=== PATIENT | female | born 1980 | race Caucasian/White ===

== ENCOUNTER 2017-11-24 00:55 | Emergency (ER) | payer SELFPAY ==
[2017-11-24] MEDS ORDERED: LORAZEPAM 1 MG TABLET ONE (01:26)
[2017-11-24] MEDS ORDERED: METOCLOPRAMIDE 10 MG/2mL INJ ONE (01:44)
--- NOTE | 2017-11-24 02:59 | ER ---
Nurse's Notes [facility] Name: Indigo Estrada Age: 37 yrs Sex: Female : 1980 Arrival Date: 11/24/2017 Time: 00:57 Bed 19 Private MD: Diagnosis: Atypical facial pain Presentation: 11/24 01:07 Presenting complaint: Patient states: having jaw pain, headache and teeth clenching mg2 since yesterday. she had these symptoms last month and it recur yesterday. Transition of care: patient was not received from another setting of care. Onset of symptoms was November 23, 2017. Initial Sepsis Screen: Does the patient meet any 2 criteria? No. Patient's initial sepsis screen is negative. Does the patient have a suspected source of infection? No. Patient's initial sepsis screen is negative. Care prior to arrival: None. 01:07 Method Of Arrival: Wheelchair mg2 01:07 Acuity: GRISELDA 3 mg2 Historical: - Allergies: 01:11 No Known Allergies; mg2 - PMHx: 01:11 Anxiety; Schizophrenia; mg2 - PSHx: 01:11 ankle surgery; mg2 - Immunization history:: Adult Immunizations unknown. - Social history:: Smoking status: Patient uses tobacco products, 2-3 sticks a day, Patient/guardian denies using alcohol, street drugs, The patient lives with family. Screenin:13 Abuse screen: Denies threats or abuse. Denies injuries from another. Nutritional mg2 screening: No deficits noted. Tuberculosis screening: No symptoms or risk factors identified. Fall Risk None identified. Assessment: 01:14 General: Appears in no apparent distress. Behavior is anxious. Pain: Complains of pain mg2 in face head neck Pain does not radiate. Pain at worst was 10 out of 10 on a pain scale. Quality of pain is described as aching, Pain began 1 day ago. Is intermittent, Alleviated by rest, repositioning, Noted to be crying. Neuro: Level of Consciousness is awake, alert, obeys commands, Oriented to person, place. Cardiovascular: Capillary refill < 3 seconds Patient's skin is warm and dry. Respiratory: Airway is patent Respiratory effort is even, unlabored, Respiratory pattern is regular, symmetrical. GI: No signs and/or symptoms were reported involving the gastrointestinal system. : No signs and/or symptoms were reported regarding the genitourinary system. EENT: Eyes left eye pain, unable to open. Derm: Skin is intact, Skin is pink, warm \T\ dry. normal. Musculoskeletal: Capillary refill < 3 seconds, neck pain. 01:48 Reassessment: Patient appears in no apparent distress at this time. Patient and/or aa1 family updated on plan of care and expected duration. Pain level reassessed. Patient is alert, oriented x 3, equal unlabored respirations, skin warm/dry/pink. Pt medicated per MD orders. Will monitor for effectiveness of medication. 03:12 Reassessment: Patient appears in no apparent distress at this time. Patient is alert, aa1 oriented x 3, equal unlabored respirations, skin warm/dry/pink. Discussed d/c \T\ f/u instructions with pt; denies questions or concerns at this time Patient states feeling better. Patient states symptoms have improved. Vital Signs: 01:12 BP 186 / 118; Pulse 92; Resp 20; Temp 97.9; Pulse Ox 100% on R/A; Pain 10/10; mg2 01:48 BP 165 / 100; Pulse 77; Resp 20; Pulse Ox 99% on R/A; Pain 10/10; aa1 03:12 BP 153 / 99; Pulse 79; Resp 16; Pulse Ox 100% on R/A; Pain 0/10; aa1 ED Course: 00:57 Patient arrived in ED. al2 01:07 Lopez Torres, RN is Primary Nurse. mg2 01:10 Triage completed. mg2 01:13 Arm band placed on Patient placed in the treatment room, on a stretcher, on pulse mg2 oximetry. 01:17 Rosangela Figueroa MD is Attending Physician. ma2 03:12 No provider procedures requiring assistance completed. Patient did not have IV access aa1 during this emergency room visit. Administered Medications: 01:31 Drug: Ativan 2 mg Route: PO; mg2 03:12 Follow up: Response: No adverse reaction; Marked relief of symptoms aa1 01:50 Drug: Reglan 10 mg Route: IM; Site: right gluteus; aa1 03:12 Follow up: Response: No adverse reaction; Marked relief of symptoms aa1 Outcome: 02:58 Discharge ordered by MD. ma2 03:12 Discharged to home ambulatory. aa1 03:12 Condition: good 03:12 Discharge instructions given to patient, Instructed on discharge instructions, follow up and referral plans. medication usage, Demonstrated understanding of instructions, follow-up care, medications, Prescriptions given X 1. 03:14 Patient left the ED. aa1 Signatures: Jaz Cyr RN RN doug1 Laura Beltran Mohammad, MD MD ma2 Lopez Torres RN RN mg2
--- NOTE | 2017-11-24 02:59 | EDPHYS ---
Physician Documentation [facility] Name: Indigo Estrada Age: 37 yrs Sex: Female : 1980 Arrival Date: 11/24/2017 Time: 00:57 Bed 19 Private MD: ED Physician Rosangela Figueroa HPI: 11/24 02:55 This 37 yrs old Female presents to ER via Wheelchair with complaints of ma2 POSSIBLE SEIZURE. 02:55 The patient's problem is reported as facila pain x 1 day and teeth clinching . Onset: ma2 The symptoms/episode began/occurred gradually, 1 day(s) ago. Duration: The episode is continuous. The patient presents the episode(s) was witnessed, no seizure reported she had teeth clinching for 12 hrs constant and thought that this could be seizure . Seizure Hx: the patient has no previous seizure history. Current symptoms: headache. Historical: - Allergies: 01:11 No Known Allergies; mg2 - PMHx: 01:11 Anxiety; Schizophrenia; mg2 - PSHx: 01:11 ankle surgery; mg2 - Immunization history:: Adult Immunizations unknown. - Social history:: Smoking status: Patient uses tobacco products, 2-3 sticks a day, Patient/guardian denies using alcohol, street drugs, The patient lives with family. ROS: 02:55 Neuro: Positive for headache. ma2 02:55 All other systems are negative. 02:59 Constitutional: Negative for fever, chills, and weight loss. ma2 Exam: 02:55 Constitutional: This is a well developed, well nourished patient who is awake, alert, ma2 and in no acute distress. Head/Face: Normocephalic, atraumatic. Abdomen/GI: Soft, non-tender, with normal bowel sounds. No distension or tympany. No guarding or rebound. No evidence of tenderness throughout. Back: No spinal tenderness. No costovertebral tenderness. Full range of motion. Skin: Warm, dry with normal turgor. Normal color with no rashes, no lesions, and no evidence of cellulitis. MS/ Extremity: Pulses equal, no cyanosis. Neurovascular intact. Full, normal range of motion. Neuro: Awake and alert, GCS 15, oriented to person, place, time, and situation. Cranial nerves II-XII grossly intact. Motor strength 5/5 in all extremities. Sensory grossly intact. Cerebellar exam normal. Normal gait. 02:55 Psych: Behavior/mood is anxious, Affect is 02:59 CT study not indicated or reported. Reason for not performing CT: na ma2 Vital Signs: 01:12 BP 186 / 118; Pulse 92; Resp 20; Temp 97.9; Pulse Ox 100% on R/A; Pain 10/10; mg2 01:48 BP 165 / 100; Pulse 77; Resp 20; Pulse Ox 99% on R/A; Pain 10/10; aa1 03:12 BP 153 / 99; Pulse 79; Resp 16; Pulse Ox 100% on R/A; Pain 0/10; aa1 MDM: 01:18 Patient medically screened. ma2 02:55 Differential diagnosis: drug effects, bipolar, anxiety. Data reviewed: vital signs, ma2 nurses notes, EMS record, snf records. Counseling: I had a detailed discussion with the patient and/or guardian regarding: the historical points, exam findings, and any diagnostic results supporting the discharge/admit diagnosis, the presence of at least one elevated blood pressure reading (>120/80) during this emergency department visit, the need for outpatient follow up. Medication response: ativan and reglan. Response to treatment: the patient's symptoms have resolved after treatment. Administered Medications: 01:31 Drug: Ativan 2 mg Route: PO; mg2 03:12 Follow up: Response: No adverse reaction; Marked relief of symptoms aa1 01:50 Drug: Reglan 10 mg Route: IM; Site: right gluteus; aa1 03:12 Follow up: Response: No adverse reaction; Marked relief of symptoms aa1 Disposition: 11/24/17 02:58 Discharged to Home. Impression: Atypical facial pain. - Condition is Stable. - Discharge Instructions: General Headache Without Cause, Pain Without a Known Cause. - Prescriptions for Ativan 1 mg Oral Tablet - take 1 tablet by ORAL route every 8 hours As needed; 10 tablet. - Medication Reconciliation Form, Thank You Letter, Antibiotic Education, Prescription Opioid Use form. - Follow up: Private Physician; When: Tomorrow; Reason: Continuance of care. - Problem is new. - Symptoms are resolved. Signatures: Jaz Cyr RN RN aa1 Rosangela Figueroa MD MD ma2 Gardose, Lopez, RN RN mg2 Corrections: (The following items were deleted from the chart) 03:14 02:58 11/24/2017 02:58 Discharged to Home. Impression: Atypical facial pain. Condition aa1 is Stable. Forms are Medication Reconciliation Form, Thank You Letter, Antibiotic Education, Prescription Opioid Use. Follow up: Private Physician; When: Tomorrow; Reason: Continuance of care. Problem is new. Symptoms are resolved. ma2
[2017-11-24 03:18] VITALS: TEMP 97.9
[2017-11-24 03:20] VITALS: BP 153/99; O2SAT 100
== END 2017-11-24 03:14 | disposition home or self-care (01) ==
LOC: ER 00:55
DX: G50.1 Atypical facial pain (principal); F41.9 Anxiety disorder, unspecified; Z72.0 Tobacco use
CPT/HCPCS: 96372; 99283; J2765

== ENCOUNTER 2017-12-15 03:40 | Emergency (ER) | payer SELFPAY ==
[2017-12-15 04:42] LABS: Urine Blood 1+ (NEG); Urine Glucose NEGATIVE (NEG); Urine Protein NEGATIVE (NEG); Urine Specific Gravity 1.025 (1.005-1.030); Urine pH 6.5 (5.0-7.0)
--- NOTE | 2017-12-15 04:58 | ER ---
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 ak1 pt stated "there is an infection somewhere, I don't know but my gums are pulling away from my teeth." pt stated " I am having seizures, my teeth chatter all the time now" " I can see the veins in my face and stretch naranjo" no resp distress. Transition of care: patient was not received from another setting of care. Onset of symptoms is unknown. Risk Assessment: Do you want to hurt yourself or someone else? Patient reports no desire to harm self or others. Initial Sepsis Screen: Does the patient meet any 2 criteria? No. Patient's initial sepsis screen is negative. Does the patient have a suspected source of infection? No. Patient's initial sepsis screen is negative. Care prior to arrival: None. 04:08 Acuity: GRISELDA 4 ak1 04:08 Method Of Arrival: Ambulatory ak1 Triage Assessment: 04:11 General: Appears in no apparent distress. Behavior is cooperative, anxious, fussy. ak1 Pain: Complains of pain in right side of face. Neuro:. 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 - Social history:: Smoking status: Patient uses tobacco products, smokes one-half pack cigarettes per day. - Ebola Screening: : Patient negative for fever greater than or equal to 101.5 degrees Fahrenheit, and additional compatible Ebola Virus Disease symptoms Patient denies exposure to infectious person Patient denies travel to an Ebola-affected area in the 21 days before illness onset. Screenin:11 Abuse screen: Denies threats or abuse. Denies injuries from another. Nutritional ak1 screening: No deficits noted. Tuberculosis screening: No symptoms or risk factors identified. Fall Risk None identified. Assessment: 04:15 General: Appears uncomfortable, Behavior is anxious. Pain: Complains of pain in ea headache Pain currently is 8 out of 10 on a pain scale. Quality of pain is described as aching. Neuro: Level of Consciousness is awake, alert, obeys commands, Oriented to person, place, time. Cardiovascular: Heart tones S1 S2 present Patient's skin is warm and dry. Respiratory: Airway is patent Respiratory effort is even, unlabored, Respiratory pattern is regular, symmetrical, Breath sounds are clear bilaterally. GI: No signs and/or symptoms were reported involving the gastrointestinal system. : No signs and/or symptoms were reported regarding the genitourinary system. EENT: No signs and/or symptoms were reported regarding the EENT system. Derm: Skin is pink, warm \\T\\ dry. Musculoskeletal: Circulation, motion, and sensation intact. 05:44 Reassessment: Patient and/or family updated on plan of care and expected duration. Pain bb level reassessed. Patient is alert, oriented x 3, equal unlabored respirations, skin warm/dry/pink. pt verbalized understanding of and agrees to plan of care discharge instructions given pt ambulated with steady gait to exit. Vital Signs: 04:07 BP 174 / 125; Pulse 91; Resp 20; Temp 98.4(O); Pulse Ox 100% on R/A; Weight 104.33 kg ak1 (R); Height 5 ft. 2 in. (157.48 cm) (R); Pain 8/10; 05:45 BP 166 / 95; Pulse 88; Resp 18 S; Temp 97.9(O); Pulse Ox 99% on R/A; bb 04:07 Body Mass Index 42.07 (104.33 kg, 157.48 cm) ak1 ED Course: 03:41 Patient arrived in ED. ds1 03:50 Darrian Mcintyre DO is Private Physician. ds1 04:03 Dae Polanco MD is Attending Physician. wa 04:07 Arm band placed on Patient placed in an exam room, on a stretcher, on pulse oximetry, ak1 Patient notified of wait time. 04:10 Triage completed. ak1 04:11 Patient has correct armband on for positive identification. Bed in low position. Call ak1 light in reach. Side rails up X 1. Pulse ox on. NIBP on. 04:34 Mahsa Gomez, RN is Primary Nurse. ea 05:26 No provider procedures requiring assistance completed. Patient did not have IV access ea during this emergency room visit. Administered Medications: 04:43 Drug: Motrin 600 mg Route: PO; ea 05:45 Follow up: Response: No adverse reaction bb 04:43 Drug: Tylenol 1000 mg Route: PO; ea 05:45 Follow up: Response: No adverse reaction bb Outcome: 04:57 Discharge ordered by . sachi 05:46 Discharged to home ambulatory. bb 05:46 Condition: stable 05:46 Discharge instructions given to patient. 05:46 Patient left the ED. bb Signatures: Jeannine Ramírez Brenda, RN RN Ashlee Kovacs RN RN Mahsa Funez RN RN ea Appiah, William, MD MD wa
--- NOTE | 2017-12-15 04:58 | EDPHYS ---
Physician Documentation [facility] Name: Indigo Estrada Age: 37 yrs Sex: Female : 1980 Arrival Date: 12/15/2017 Time: 03:41 Bed 6 Private MD: Darrian Mcintyre H ED Physician Dae Polanco HPI: 12/15 07:14 This 37 yrs old Female presents to ER via Ambulatory with complaints of wa Numbness Of Face. 07:14 The patient's problem is reported as c/o R facial pain that comes and goes for several wa weeks. this time worse x 3 days. denies SOB, toothache or fever. Onset: The symptoms/episode began/occurred 3 day(s) ago. Duration: This was a single incident. Context: denies trauma. The symptoms are alleviated by nothing. The symptoms are aggravated by nothing. Associated signs and symptoms: The patient has no apparent associated signs or symptoms. Severity of symptoms: At their worst the symptoms were moderate in the emergency department the symptoms are worse. Patient's baseline: Neuro: alert and fully oriented, Motor: no deficits, Ambulation: walks without assistance. The patient has not experienced similar symptoms in the past. The patient has experienced similar episodes in the past, a few times. The patient has not recently seen a physician. 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 - Social history:: Smoking status: Patient uses tobacco products, smokes one-half pack cigarettes per day. - Ebola Screening: : Patient negative for fever greater than or equal to 101.5 degrees Fahrenheit, and additional compatible Ebola Virus Disease symptoms Patient denies exposure to infectious person Patient denies travel to an Ebola-affected area in the 21 days before illness onset. ROS: 07:16 Constitutional: Negative for fever, chills, and weight loss, Eyes: Negative for injury, wa pain, redness, and discharge, ENT: Negative for injury, pain, and discharge, Cardiovascular: Negative for chest pain, palpitations, and edema, Respiratory: Negative for shortness of breath, cough, wheezing, and pleuritic chest pain, Abdomen/GI: Negative for abdominal pain, nausea, vomiting, diarrhea, and constipation, Back: Negative for injury and pain, : Negative for injury, bleeding, discharge, and swelling, MS/Extremity: Negative for injury and deformity, Skin: Negative for injury, rash, and discoloration, Neuro: Negative for headache, weakness, numbness, tingling, and seizure. 07:16 Neck: Positive for pain with movement, tenderness, of the right jaw and right mandible. Exam: 07:16 Radiologist reports: not applicable wa 07:16 Constitutional: This is a well developed, well nourished patient who is awake, alert, and in no acute distress. Eyes: Pupils equal round and reactive to light, extra-ocular motions intact. Lids and lashes normal. Conjunctiva and sclera are non-icteric and not injected. Cornea within normal limits. Periorbital areas with no swelling, redness, or edema. Chest/axilla: Normal chest wall appearance and motion. Nontender with no deformity. No lesions are appreciated. Cardiovascular: Regular rate and rhythm with a normal S1 and S2. No gallops, murmurs, or rubs. Normal PMI, no JVD. No pulse deficits. Respiratory: Lungs have equal breath sounds bilaterally, clear to auscultation and percussion. No rales, rhonchi or wheezes noted. No increased work of breathing, no retractions or nasal flaring. Abdomen/GI: Soft, non-tender, with normal bowel sounds. No distension or tympany. No guarding or rebound. No evidence of tenderness throughout. Back: No spinal tenderness. No costovertebral tenderness. Full range of motion. Skin: Warm, dry with normal turgor. Normal color with no rashes, no lesions, and no evidence of cellulitis. MS/ Extremity: Pulses equal, no cyanosis. Neurovascular intact. Full, normal range of motion. Neuro: Awake and alert, GCS 15, oriented to person, place, time, and situation. Cranial nerves II-XII grossly intact. Motor strength 5/5 in all extremities. Sensory grossly intact. Cerebellar exam normal. Normal gait. Psych: Awake, alert, with orientation to person, place and time. Behavior, mood, and affect are within normal limits. 07:16 Head/face: Noted is tenderness, that is moderate, of the diffuse R face. . 07:16 ENT: Posterior pharynx: is normal, Dental exam: normal. 07:16 Neck: External neck: is normal, Trachea: is midline with no obvious abnormalities, diffuse tenderness, R face and angle of neck. Vital Signs: 04:07 BP 174 / 125; Pulse 91; Resp 20; Temp 98.4(O); Pulse Ox 100% on R/A; Weight 104.33 kg ak1 (R); Height 5 ft. 2 in. (157.48 cm) (R); Pain 8/10; 05:45 BP 166 / 95; Pulse 88; Resp 18 S; Temp 97.9(O); Pulse Ox 99% on R/A; bb 04:07 Body Mass Index 42.07 (104.33 kg, 157.48 cm) ak1 MDM: 04:03 Patient medically screened. wi 07:18 Differential diagnosis: reason for inflammation unclear at this time. will treat with wi anti-inflammatory and reassess. Data reviewed: vital signs, nurses notes. 12/15 04:21 Order name: Urine Dipstick--Ancillary (enter results); Complete Time: 04:51 rg2 12/15 04:21 Order name: Urine --Ancillary (enter results); Complete Time: 04:51 rg2 Administered Medications: 04:43 Drug: Motrin 600 mg Route: PO; ea 05:45 Follow up: Response: No adverse reaction bb 04:43 Drug: Tylenol 1000 mg Route: PO; ea 05:45 Follow up: Response: No adverse reaction bb Disposition: 12/15/17 04:57 Discharged to Home. Impression: Right facial pain . - Condition is Stable. - Prescriptions for Prednisone 20 mg Oral Tablet - take 2 tablet by ORAL route once daily for 5 days; 10 tablet. Ibuprofen 600 mg Oral Tablet - take 1 tablet by ORAL route every 6 hours As needed take with food; 20 tablet. - Medication Reconciliation Form, Thank You Letter, Antibiotic Education, Prescription Opioid Use form. - Follow up: Private Physician; When: 2 - 3 days; Reason: Recheck today's complaints. - Problem is new. - Symptoms have improved. - Notes: take medication as prescribed. see your doctor for further evaluation within 3-5 days Signatures: Dispatcher [employer] EDMS Wong, Magalie, RN RN Ashlee Kovacs RN RN ak1 Mahsa Gomez RN RN Dae Mendieta MD MD wa Corrections: (The following items were deleted from the chart) 05:46 04:57 12/15/2017 04:57 Discharged to Home. Impression: Right facial pain . Condition is bb Stable. Forms are Medication Reconciliation Form, Thank You Letter, Antibiotic Education, Prescription Opioid Use. Follow up: Private Physician; When: 2 - 3 days; Reason: Recheck today's complaints. Problem is new. Symptoms have improved. wa
[2017-12-15 06:09] VITALS: BP 166/95; TEMP 97.9; O2SAT 99
== END 2017-12-15 05:46 | disposition home or self-care (01) ==
LOC: ER 03:40
DX: R68.84 Jaw pain (principal); F17.210 Nicotine dependence, cigarettes, uncomplicated
CPT/HCPCS: 81003; 81025; 99283

== ENCOUNTER 2018-06-01 16:55 | Emergency (ER) | payer SELFPAY ==
--- NOTE | 2018-06-01 17:32 | RAD REPORT ---
EXAM DESCRIPTION: CT - Head Brain Wo Cont - 06/01/2018 5:25 pm CLINICAL HISTORY: Headache, neck pain, left-sided facial infection COMPARISON: None. TECHNIQUE: Axial 5 mm thick images of the head were obtained without IV contrast. All CT scans are performed using dose optimization technique as appropriate and may include automated exposure control or mA/KV adjustment according to patient size. FINDINGS: No intracranial hemorrhage, mass, edema or shift of mid-line structures. No acute infarcti on changes seen. No abnormal extra-axial fluid collections. Ventricles are normal. Mastoid air cells are clear. There is patchy mucosal thickening in the ethmoid air cells. No globe or orbital content abnormality. No suspicious finding in the imaged portions of the left-side face soft tissues. No acute bony findings. IMPRESSION: Negative non-contrast CT head examination for acute or significant finding.
--- NOTE | 2018-06-01 17:39 | ER ---
Nurse's Notes [facility] Name: Indigo Estrada Age: 37 yrs Sex: Female : 1980 Arrival Date: 06/01/2018 Time: 16:57 Bed 20 Private MD: Darrian Mcintyre H Diagnosis: Essential (primary) hypertension;Acute serous otitis media, left ear Presentation: 06/01 17:08 Presenting complaint: Patient states: left facial infection, "I feel like the infection sv is moving around in my face. I had baby teeth and they were supposed to take 1 tooth out and they ended up breaking half of my other teeth and then they glued them back in place.". Transition of care: patient was not received from another setting of care. Onset of symptoms is unknown. Care prior to arrival: Medication(s) given: Motrin, 600 mg. 17:08 Method Of Arrival: Ambulatory sv 17:08 Acuity: GRISELDA 3 sv 17:15 Risk Assessment: Do you want to hurt yourself or someone else? Patient reports no tw2 desire to harm self or others. Initial Sepsis Screen: Does the patient meet any 2 criteria? No. Patient's initial sepsis screen is negative. Does the patient have a suspected source of infection? No. Patient's initial sepsis screen is negative. BURNER HAND: 17:58 LMP N/A - . tw2 Historical: - Allergies: 17:11 No Known Allergies; sv - PMHx: 17:11 Anxiety; Schizophrenia; sv - PSHx: 17:11 ankle surgery; sv - Immunization history:: Flu vaccine is not up to date. - Social history:: Smoking status: Patient uses tobacco products, denies chronic smoking, but will smoke occasionally. - Ebola Screening: : No symptoms or risks identified at this time. Screenin:14 Abuse screen: Denies threats or abuse. Nutritional screening: No deficits noted. tw2 Tuberculosis screening: No symptoms or risk factors identified. Fall Risk None identified. Assessment: 17:16 General: Appears in no apparent distress. Behavior is cooperative, appropriate for age. tw2 Pain: Complains of pain in mouth. Neuro: Level of Consciousness is awake, alert, obeys commands, Oriented to person, place, time, situation. Cardiovascular: Heart tones S1 S2 Patient's skin is warm and dry. Respiratory: Airway is patent Respiratory effort is even, unlabored, Respiratory pattern is regular, symmetrical, Breath sounds are clear bilaterally. GI: No signs and/or symptoms were reported involving the gastrointestinal system. : No signs and/or symptoms were reported regarding the genitourinary system. EENT: Reports dental pain. Derm: No signs and/or symptoms reported regarding the dermatologic system. Musculoskeletal: Range of motion: intact in all extremities. 17:31 Reassessment: pt states "my teeth hurt so bad but it dont stop me from eating this tw2 kitkat". 17:58 Reassessment: Patient appears in no apparent distress at this time. No changes from tw2 previously documented assessment. Patient is alert, oriented x 3, equal unlabored respirations, skin warm/dry/pink. Vital Signs: 17:09 BP 179 / 130; Pulse 97; Resp 22; Temp 97.8; Pulse Ox 98% ; Weight 90.72 kg; Height 5 sv ft. 2 in. (157.48 cm); Pain 7/10; 17:31 BP 174 / 102; Pulse 100; Resp 19; Pulse Ox 99% on R/A; tw2 17:58 BP 170 / 99; Pulse 99; Resp 17; Pulse Ox 99% on R/A; tw2 17:09 Body Mass Index 36.58 (90.72 kg, 157.48 cm) sv ED Course: 16:57 Patient arrived in ED. sb2 16:57 Darrian Mcintyre DO is Private Physician. sb2 17:09 Triage completed. sv 17:10 Arm band placed on. sv 17:14 Renetta Hess, RN is Primary Nurse. tw2 17:15 Nat Naylor FNP-C is PHCP. snw 17:15 Jarrod Serrato MD is Attending Physician. snw 17:15 Bed in low position. Call light in reach. tw2 17:[address] vr 17:25 CT Head Brain wo Cont In Process Unspecified. EDMS 17:27 CT completed. Patient tolerated procedure well. Patient moved back from CT. vm2 17:38 Darrian Mcintyre DO is Referral Physician. snw 17:58 No provider procedures requiring assistance completed. Patient did not have IV access tw2 during this emergency room visit. Administered Medications: 17:41 Drug: cloNIDine 0.2 mg Route: PO; tw2 17:57 Follow up: Response: No adverse reaction; Blood pressure is lowered tw2 17:41 Drug: Augmentin 875 mg Route: PO; tw2 17:57 Follow up: Response: No adverse reaction tw2 Outcome: 17:39 Discharge ordered by . alyx 17:59 Discharged to home ambulatory. tw2 17:59 Condition: stable 17:59 Discharge instructions given to patient, Instructed on discharge instructions, follow up and referral plans. medication usage, Demonstrated understanding of instructions, follow-up care, medications, Prescriptions given X 2. 17:59 Patient left the ED. tw2 Signatures: Dispatcher [employer] EDCatherine Duran RN RN Nat Moore, CONDITIONER TUMBLER OPERATOR-C CONDITIONER TUMBLER OPERATOR-Margaux Champion Tara, RN RN tw2 Margaux Fountain [facility] Maria D Pedraza 2
--- NOTE | 2018-06-01 17:39 | EDPHYS ---
Physician Documentation [facility] Name: Indigo Estrada Age: 37 yrs Sex: Female : 1980 Arrival Date: 06/01/2018 Time: 16:57 Bed 20 Private MD: Darrian Mcintyre H ED Physician Jarrod Serrato HPI: 06/01 17:44 This 37 yrs old Female presents to ER via Ambulatory with complaints of Neck snw Pain, <24hrs Old. 17:44 The patient or guardian complains of pain, that is acute. The symptoms are located left snw mandibular, submandibular, and left lateral neck. Onset: The symptoms/episode began/occurred gradually, 6 week(s) ago, intermittently. Context: The problem was sustained at home. Associated signs and symptoms: The patient has no apparent associated signs or symptoms. The pain does not radiate. Modifying factors: The symptoms are alleviated by nothing. the symptoms are aggravated by pressure. Severity of symptoms: At their worst the symptoms were moderate, severe. The patient has experienced similar episodes in the past, intermittently. 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 tw2 Historical: - Allergies: 17:11 No Known Allergies; sv - PMHx: 17:11 Anxiety; Schizophrenia; sv - PSHx: 17:11 ankle surgery; sv - Immunization history:: Flu vaccine is not up to date. - Social history:: Smoking status: Patient uses tobacco products, denies chronic smoking, but will smoke occasionally. - Ebola Screening: : No symptoms or risks identified at this time. ROS: 17:43 Constitutional: Negative for fever, chills, and weight loss, Eyes: Negative for injury, snw pain, redness, and discharge. 17:43 Cardiovascular: Negative for chest pain, palpitations, and edema, Respiratory: Negative for shortness of breath, cough, wheezing, and pleuritic chest pain, Abdomen/GI: Negative for abdominal pain, nausea, vomiting, diarrhea, and constipation, Back: Negative for injury and pain, : Negative for injury, bleeding, discharge, and swelling, MS/Extremity: Negative for injury and deformity, Skin: Negative for injury, rash, and discoloration, Neuro: Negative for headache, weakness, numbness, tingling, and seizure. 17:43 ENT: Positive for dental pain, sinus congestion. 17:43 Neck: Positive for swollen nodes, tenderness, submandibular. Exam: 17:42 Constitutional: This is a well developed, well nourished patient who is awake, alert, snw and in no acute distress. Head/Face: Normocephalic, atraumatic. Eyes: Pupils equal round and reactive to light, extra-ocular motions intact. Lids and lashes normal. Conjunctiva and sclera are non-icteric and not injected. Cornea within normal limits. Periorbital areas with no swelling, redness, or edema. ENT: Nares patent. No nasal discharge, no septal abnormalities noted. Tympanic membranes are erythematous to left, normal to right and external auditory canals are clear. Oropharynx with no redness, swelling, or masses, exudates, or evidence of obstruction, uvula midline. Mucous membranes moist. Dental caries Neck: Trachea midline, no thyromegaly or masses palpated, and no cervical lymphadenopathy. Supple, full range of motion without nuchal rigidity, or vertebral point tenderness. No Meningismus. Chest/axilla: Normal chest wall appearance and motion. Nontender with no deformity. No lesions are appreciated. Cardiovascular: Regular rate and rhythm with a normal S1 and S2. No gallops, murmurs, or rubs. Normal PMI, no JVD. No pulse deficits. Respiratory: Lungs have equal breath sounds bilaterally, clear to auscultation and percussion. No rales, rhonchi or wheezes noted. No increased work of breathing, no retractions or nasal flaring. Abdomen/GI: Soft, non-tender, with normal bowel sounds. No distension or tympany. No guarding or rebound. No evidence of tenderness throughout. Back: No spinal tenderness. No costovertebral tenderness. Full range of motion. Skin: Warm, dry with normal turgor. Normal color with no rashes, no lesions, and no evidence of cellulitis. MS/ Extremity: Pulses equal, no cyanosis. Neurovascular intact. Full, normal range of motion. Neuro: Awake and alert, GCS 15, oriented to person, place, time, and situation. Cranial nerves II-XII grossly intact. Motor strength 5/5 in all extremities. Sensory grossly intact. Cerebellar exam normal. Normal gait. Psych: Awake, alert, with orientation to person, place and time. Behavior, mood, and affect are within normal limits. Vital Signs: 17:09 BP 179 / 130; Pulse 97; Resp 22; Temp 97.8; Pulse Ox 98% ; Weight 90.72 kg; Height 5 sv ft. 2 in. (157.48 cm); Pain 7/10; 17:31 BP 174 / 102; Pulse 100; Resp 19; Pulse Ox 99% on R/A; tw2 17:58 BP 170 / 99; Pulse 99; Resp 17; Pulse Ox 99% on R/A; tw2 17:09 Body Mass Index 36.58 (90.72 kg, 157.48 cm) sv MDM: 17:19 Patient medically screened. snw 17:44 Data reviewed: vital signs, nurses notes. Data interpreted: Pulse oximetry: on room air snw is 99 %. Interpretation: normal. Counseling: I had a detailed discussion with the patient and/or guardian regarding: the historical points, exam findings, and any diagnostic results supporting the discharge/admit diagnosis, the presence of at least one elevated blood pressure reading (>120/80) during this emergency department visit, radiology results, the need for outpatient follow up, to return to the emergency department if symptoms worsen or persist or if there are any questions or concerns that arise at home. Special discussion: I have referred the patient to see his PCP for further evaluation of high blood pressure. Based on the history and exam findings, there is no indication for further emergent testing or inpatient evaluation. I discussed with the patient/guardian the need to see a dentist for further evaluation of the symptoms. I discussed with the patient/guardian the need to see the primary care provider for further evaluation of the symptoms. 06/01 17:17 Order name: CT Head Brain wo Cont; Complete Time: 17:34 snw 06/01 17:17 Order name: Recheck B/P; Complete Time: 17:40 snw Administered Medications: 17:41 Drug: cloNIDine 0.2 mg Route: PO; tw2 17:57 Follow up: Response: No adverse reaction; Blood pressure is lowered tw2 17:41 Drug: Augmentin 875 mg Route: PO; tw2 17:57 Follow up: Response: No adverse reaction tw2 Disposition: 06/02 07:09 Co-signature as Attending Physician, Jarrod Serrato MD I agree with the assessment and azar plan of care. Disposition: 06/01/18 17:39 Discharged to Home. Impression: Essential (primary) hypertension, Acute serous otitis media, left ear. - Condition is Stable. - Discharge Instructions: Dental Caries, Adult, Otitis Media, Adult, Hypertension, Rehydration, Adult. - Prescriptions for Augmentin 875- 125 mg Oral Tablet - take 1 tablet by ORAL route every 12 hours for 10 days; 20 tablet. Clonidine 0.1 mg Oral Tablet - take 1 tablet by ORAL route every 12 hours; 30 tablet. - Medication Reconciliation Form, Thank You Letter, Antibiotic Education, Prescription Opioid Use form. - Follow up: Darrian Mcintyre DO; When: 2 - 3 days; Reason: Recheck today's complaints, Continuance of care, Re-evaluation by your physician. Follow up: Emergency Department; When: As needed; Reason: Worsening of condition. Signatures: Dispatcher [employer] EDCatherine Duran, RN RN Jarrod Mendez MD MD cha Therrien, Shelly, ROAD TEST EXAMINER-C ROAD TEST EXAMINER-Csnw Renetta Hess RN RN tw2 Corrections: (The following items were deleted from the chart) 06/01 17:59 17:39 06/01/2018 17:39 Discharged to Home. Impression: Essential (primary) tw2 hypertension; Acute serous otitis media, left ear. Condition is Stable. Forms are Medication Reconciliation Form, Thank You Letter, Antibiotic Education, Prescription Opioid Use. Follow up: Darrian Mcintyre; When: 2 - 3 days; Reason: Recheck today's complaints, Continuance of care, Re-evaluation by your physician. Follow up: Emergency Department; When: As needed; Reason: Worsening of condition. snw
[2018-06-01] MEDS ORDERED: AMOX/K CLAV 875 MG TAB ONE (17:47)
[2018-06-01] MEDS ORDERED: cloNIDine HCl 0.1 MG TAB ONE (17:47)
[2018-06-01 18:28] VITALS: O2SAT 99
[2018-06-01 18:29] VITALS: TEMP 97.8
[2018-06-01 18:30] VITALS: BP 170/99
== END 2018-06-01 17:59 | disposition home or self-care (01) ==
LOC: ER 16:55
DX: I10 Essential (primary) hypertension (principal); H65.02 Acute serous otitis media, left ear; F17.210 Nicotine dependence, cigarettes, uncomplicated; M54.2 Cervicalgia
CPT/HCPCS: 70450; 99284

== ENCOUNTER 2018-11-09 04:39 | Emergency (ER) | payer SELFPAY ==
[2018-11-09 05:06] LABS: Absolute Lymphocytes (CBC) 3.3 K/uL (0.7-4.9); Absolute Monocytes 0.7 K/uL (0.1-1.3); Absolute Neutrophil 4.1 K/uL (1.8-8.0); Basophils % 1.3 % (0-1.3); Eosinophils % 4.8 % (0-4.4); Hematocrit 39.8 % (36.0-45.0); Lymphocytes % 38.5 % (15.3-44.8); MPV 8.4 fL (7.6-11.3); Monocytes % 7.7 % (3.3-12.3); RBC Red Blood Cell Count 4.74 M/uL (3.86-4.86)
[2018-11-09 05:08] LABS: Protime INR 0.98
[2018-11-09 05:23] LABS: ALT/SGPT 24 U/L (12-78); AST/SGOT 18 U/L (15-37); Albumin 3.6 g/dL (3.4-5.0); Alkaline Phosphatase 66 U/L (45-117); BUN Blood Urea Nitrogen 19 mg/dL (7-18); Bicarbonate 23 mmol/L (21-32); Bilirubin Direct < 0.1 mg/dL (0-0.2); Bilirubin Total 0.3 mg/dL (0.2-1.0); Glucose Level 84 mg/dL (74-106); Magnesium 2.2 mg/dL (1.8-2.4); NT PRO-BNP 15 pg/mL (<125); Protein, Total 7.6 g/dL (6.4-8.2); Sodium Level 140 mmol/L (136-145); Troponin (Emerg Dept Use Only) < 0.02 ng/mL (0.0-0.045)
--- NOTE | 2018-11-09 06:29 | ER ---
Nurse's Notes [facility] Name: Indigo Estrada Age: 38 yrs Sex: Female : 1980 Arrival Date: 11/09/2018 Time: 04:45 Bed 4 Private MD: Diagnosis: Epilepsy and recurrent seizures;Schizophrenia Presentation: 11/09 04:35 Presenting complaint: EMS states: they were toned out for report of pt having bb difficulty speaking, feeling weak, twitching and headache. Transition of care: patient was not received from another setting of care. Onset of symptoms is unknown. Risk Assessment: Do you want to hurt yourself or someone else? Patient reports no desire to harm self or others. Initial Sepsis Screen: Does the patient meet any 2 criteria? No. Patient's initial sepsis screen is negative. Does the patient have a suspected source of infection? No. Patient's initial sepsis screen is negative. Care prior to arrival: None. 04:35 Method Of Arrival: EMS: [facility] bb 04:35 Acuity: GRISELDA 2 bb Historical: - Allergies: 04:57 No Known Allergies; bb - Home Meds: 04:57 None [Active]; bb - PMHx: 04:57 Anxiety; Schizophrenia; Seizures; bb - Immunization history:: Adult Immunizations unknown. - Social history:: Smoking status: unknown. - Ebola Screening: : No symptoms or risks identified at this time. Screenin:05 Abuse screen: Denies threats or abuse. Nutritional screening: No deficits noted. tl2 Tuberculosis screening: No symptoms or risk factors identified. Fall Risk IV access (20 points). Assessment: 05:05 General: Appears in no apparent distress. uncomfortable, Behavior is anxious. General: tl2 pt states, "I feel like my face is moving and like I have an infection or something, it's been this way for two years". Pain: Complains of pain in left jaw. Neuro: Level of Consciousness is awake, alert, obeys commands, Oriented to person, place, time, situation, Denies weakness dizziness, numbness. Cardiovascular: Denies chest pain, reports that chest "feels hot". Respiratory: Airway is patent Respiratory effort is even, unlabored, Respiratory pattern is regular, symmetrical. GI: No signs and/or symptoms were reported involving the gastrointestinal system. : No signs and/or symptoms were reported regarding the genitourinary system. Derm: Skin is pink, warm \\T\\ dry. 05:56 Reassessment: Patient appears in no apparent distress at this time. Patient and/or tl2 family updated on plan of care and expected duration. Pain level reassessed. 06:58 Reassessment: Patient appears in no apparent distress at this time. Patient and/or tl2 family updated on plan of care and expected duration. Pain level reassessed. Patient is alert, oriented x 3, equal unlabored respirations, skin warm/dry/pink. pt verbalized understanding of discharge instructions, need for follow up with psychiatric. Vital Signs: 04:57 BP 131 / 100; Pulse 108; Resp 16 S; Temp 97.8(O); Pulse Ox 100% on R/A; Weight 81.65 kg bb (R); Height 5 ft. 2 in. (157.48 cm) (R); Pain 0/10; 05:56 BP 153 / 104; Pulse 87; Resp 22; Pulse Ox 99% on R/A; tl2 06:57 BP 136 / 89; Pulse 82; Resp 18; Pulse Ox 98% on R/A; tl2 04:57 Body Mass Index 32.92 (81.65 kg, 157.48 cm) bb NIH Stroke Scale Scores: 06:16 NIHSS Score: 0 gs ED Course: 04:45 Patient arrived in ED. bb 04:50 Arm band placed on Patient placed in an exam room, on a stretcher, on rn cardiac cath, bb on pulse oximetry. 04:53 Tamir Lopez MD is Attending Physician. gs 04:56 Triage completed. bb 05:00 Inserted saline lock: 20 gauge in right antecubital area, using aseptic technique. cc3 05:01 CT Stroke Brain w/o Contrast In Process Unspecified. EDMS 05:05 Patient has correct armband on for positive identification. Bed in low position. Call tl2 light in reach. Side rails up X2. 06:26 XRAY Chest (1 view) In Process Unspecified. EDMS 06:58 No provider procedures requiring assistance completed. IV discontinued, intact, tl2 bleeding controlled, No redness/swelling at site. Pressure dressing applied. Administered Medications: No medications were administered Point of Care Testing: Blood Glucose: 05:07 Blood Glucose: 91 mg/dL; cc3 Ranges: Outcome: 06:29 Discharge ordered by . 06:58 Discharged to home ambulatory. tl2 06:58 Condition: stable 06:58 Discharge instructions given to patient, Instructed on discharge instructions, follow up and referral plans. Demonstrated understanding of instructions, follow-up care. 07:03 Patient left the ED. tl2 NIH Stroke Scale - NIH Stroke Score Date: 11/09/2018 Time: 06:16 Total Score = 0 1a. Level of Consciousness (LOC) - 0(Alert) 1b. Level of Consciousness (LOC) (Year \\T\\ Age) - 0(Both) 1c. LOC Commands (Open \\T\\ Closes Eyes/Intellectual Property Legal Assistant) - 0(Both) 2. Best Gaze (Lateral Gaze Paresis) - 0(Normal) 3. Visual Field Loss - 0(No visual loss) 4. Facial Palsy - 0(Normal) 5a. Left Arm: Motor (10-second hold) - 0(No drift) 5b. Right Arm: Motor (10-second hold) - 0(No drift) 6a. Left Leg: Motor (5-second hold - always test supine) - 0(No drift) 6b. Right Leg: Motor (5-second hold - always test supine) - 0(No drift) 7. Limb Ataxia (finger/nose \\T\\ heel/gilmore - test with eyes open) - 0(Absent) 8. Sensory Loss (pinprick arms/legs/face) - 0(Normal) 9. Best Language: Aphasia (description/naming/reading) - 0(No aphasia) 10. Dysarthria (speech clarity - read or repeat words) - 0(Normal) 11. Extinction and Inattention (visual/tactile/auditory/spatial/personal) - 0(No abnormality) Initials: Signatures: Dispatcher [employer] EDMS Magalie Wong RN RN bb Rica Mari RN RN tl2 Tamir Lopez MD MD gs Cordel, Charlene cc3 Corrections: (The following items were deleted from the chart) 06:20 04:35 Presenting complaint: EMS states: they were toned out for report of pt bb having difficulty speaking, feeling weak, twitching and headache. Pt reported she had been having "thunderclap headaches" all day. bb
--- NOTE | 2018-11-09 06:29 | EDPHYS ---
Physician Documentation [facility] Name: Indigo Estrada Age: 38 yrs Sex: Female : 1980 Arrival Date: 11/09/2018 Time: 04:45 Bed 4 Private MD: ED Physician Tamir Lopez HPI: 11/09 06:15 This 38 yrs old Female presents to ER via EMS with complaints of possible gs seizure,headache. 06:15 The patient's problem is reported as possible seizure. Onset: The symptoms/episode gs began/occurred this morning. Duration: The episodes are intermittent. The symptoms are alleviated by nothing. The symptoms are aggravated by nothing. 06:16 Associated signs and symptoms: Pertinent positives: headache, Pertinent negatives: gs chest pain, combativeness, confusion. Severity of symptoms: At their worst the symptoms were moderate in the emergency department the symptoms have resolved and did so just prior to arrival. The patient has experienced similar episodes in the past, multiple times. The patient has not recently seen a physician. 06:16 says daily. gs Historical: - Allergies: 04:57 No Known Allergies; bb - Home Meds: 04:57 None [Active]; bb - PMHx: 04:57 Anxiety; Schizophrenia; Seizures; bb - Immunization history:: Adult Immunizations unknown. - Social history:: Smoking status: unknown. - Ebola Screening: : No symptoms or risks identified at this time. ROS: 06:16 All other systems are negative. gs Exam: 06:16 Head/Face: Normocephalic, atraumatic. Eyes: Pupils equal round and reactive to light, gs extra-ocular motions intact. Lids and lashes normal. Conjunctiva and sclera are non-icteric and not injected. Cornea within normal limits. Periorbital areas with no swelling, redness, or edema. ENT: Nares patent. No nasal discharge, no septal abnormalities noted. Tympanic membranes are normal and external auditory canals are clear. Oropharynx with no redness, swelling, or masses, exudates, or evidence of obstruction, uvula midline. Mucous membranes moist. Neck: Trachea midline, no thyromegaly or masses palpated, and no cervical lymphadenopathy. Supple, full range of motion without nuchal rigidity, or vertebral point tenderness. No Meningismus. Chest/axilla: Normal chest wall appearance and motion. Nontender with no deformity. No lesions are appreciated. Cardiovascular: Regular rate and rhythm with a normal S1 and S2. No gallops, murmurs, or rubs. Normal PMI, no JVD. No pulse deficits. Respiratory: Lungs have equal breath sounds bilaterally, clear to auscultation and percussion. No rales, rhonchi or wheezes noted. No increased work of breathing, no retractions or nasal flaring. Abdomen/GI: Soft, non-tender, with normal bowel sounds. No distension or tympany. No guarding or rebound. No evidence of tenderness throughout. Back: No spinal tenderness. No costovertebral tenderness. Full range of motion. Skin: Warm, dry with normal turgor. Normal color with no rashes, no lesions, and no evidence of cellulitis. MS/ Extremity: Pulses equal, no cyanosis. Neurovascular intact. Full, normal range of motion. Neuro: Awake and alert, GCS 15, oriented to person, place, time, and situation. Cranial nerves II-XII grossly intact. Motor strength 5/5 in all extremities. Sensory grossly intact. Cerebellar exam normal. Normal gait. 06:16 Psych: Behavior/mood is pleasant, Affect is calm, Oriented to person, place, time, Patient has no thoughts/intents to harm self or others. Judgement / Insight is normal. Delusions/hallucinations slight flight ideas, very tangential, delusions about malignant tumors that come and go, teeth that were extracted and replaced without her knowing. pt is not a threat to others or herself offered her psychiatric evaluation and getting her back on medication for her schizophrenia, has poor insight yet knows she has a problem but isnt interested in help for that. Vital Signs: 04:57 BP 131 / 100; Pulse 108; Resp 16 S; Temp 97.8(O); Pulse Ox 100% on R/A; Weight 81.65 kg bb (R); Height 5 ft. 2 in. (157.48 cm) (R); Pain 0/10; 05:56 BP 153 / 104; Pulse 87; Resp 22; Pulse Ox 99% on R/A; tl2 06:57 BP 136 / 89; Pulse 82; Resp 18; Pulse Ox 98% on R/A; tl2 04:57 Body Mass Index 32.92 (81.65 kg, 157.48 cm) bb NIH Stroke Scale Scores: 06:16 NIHSS Score: 0 MDM: 04:53 Patient medically screened. 06:16 Differential diagnosis: CVA, TIA, drug effects, sz, psychiatric disorder. Data reviewed: vital signs, nurses notes, lab test result(s), EKG, radiologic studies. 06:29 ED course: no tpa no stroke. 11/09 04:54 Order name: Basic Metabolic Panel 11/09 04:54 Order name: CBC with Diff 11/09 04:54 Order name: LFT's 11/09 04:54 Order name: Magnesium 11/09 04:54 Order name: NT PRO-BNP; Complete Time: 06:14 11/09 04:54 Order name: PT-INR; Complete Time: 06:14 11/09 04:54 Order name: Troponin (emerg Dept Use Only); Complete Time: 06:14 11/09 04:54 Order name: Urine Drug Screen 11/09 04:54 Order name: Urine Microscopic Only 11/09 04:55 Order name: Basic Metabolic Panel; Complete Time: 06:14 EDHI 11/09 04:55 Order name: CBC with Automated Diff; Complete Time: 06:14 EDHI 11/09 04:55 Order name: Liver (Hepatic) Function; Complete Time: 06:14 EDHI 11/09 04:55 Order name: Magnesium; Complete Time: 06:14 EDHI 11/09 04:55 Order name: ETOH Level; Complete Time: 06:14 11/09 04:45 Order name: CT Stroke Brain w/o Contrast 11/09 04:54 Order name: XRAY Chest (1 view) 11/09 04:54 Order name: EKG; Complete Time: 04:55 11/09 04:54 Order name: Cardiac monitoring; Complete Time: 04:57 11/09 04:54 Order name: EKG - Nurse/Tech; Complete Time: 04:57 11/09 04:54 Order name: IV Saline Lock; Complete Time: 05:04 11/09 04:54 Order name: Labs collected and sent; Complete Time: 05:04 11/09 04:54 Order name: O2 Per Protocol; Complete Time: 04:57 11/09 04:54 Order name: O2 Sat Monitoring; Complete Time: 04:57 11/09 04:54 Order name: Urine Test (obtain specimen); Complete Time: 06:28 11/09 04:54 Order name: Urine Dipstick-Ancillary (obtain specimen); Complete Time: 06:28 11/09 06:31 Order name: Urine Dipstick--Ancillary (enter results) mw2 11/09 06:31 Order name: Urine --Ancillary (enter results) mw2 Administered Medications: No medications were administered Point of Care Testing: Blood Glucose: 05:07 Blood Glucose: 91 mg/dL; cc3 Ranges: Critical Glucose Levels:Adult <50 mg/dl or >400 mg/dl <40 mg/dl or >180 mg/dl Disposition: 11/09/18 06:29 Discharged to Home. Impression: Epilepsy and recurrent seizures, Schizophrenia. - Condition is Stable. - Discharge Instructions: Schizophrenia, Seizure, Adult, Psychosis, Neuropsychological Examination. - Medication Reconciliation Form, Thank You Letter, Antibiotic Education, Prescription Opioid Use form. - Follow up: Private Physician; When: 1 - 2 days; Reason: Re-evaluation by your physician. NIH Stroke Scale - NIH Stroke Score Date: 11/09/2018 Time: 06:16 Total Score = 0 1a. Level of Consciousness (LOC) - 0(Alert) 1b. Level of Consciousness (LOC) (Year \T\ Age) - 0(Both) 1c. LOC Commands (Open \T\ Closes Eyes/Radiologic Technology Instructor) - 0(Both) 2. Best Gaze (Lateral Gaze Paresis) - 0(Normal) 3. Visual Field Loss - 0(No visual loss) 4. Facial Palsy - 0(Normal) 5a. Left Arm: Motor (10-second hold) - 0(No drift) 5b. Right Arm: Motor (10-second hold) - 0(No drift) 6a. Left Leg: Motor (5-second hold - always test supine) - 0(No drift) 6b. Right Leg: Motor (5-second hold - always test supine) - 0(No drift) 7. Limb Ataxia (finger/nose \T\ heel/gilmore - test with eyes open) - 0(Absent) 8. Sensory Loss (pinprick arms/legs/face) - 0(Normal) 9. Best Language: Aphasia (description/naming/reading) - 0(No aphasia) 10. Dysarthria (speech clarity - read or repeat words) - 0(Normal) 11. Extinction and Inattention (visual/tactile/auditory/spatial/personal) - 0(No abnormality) Initials: gs Signatures: Dispatcher [employer] Magalie Richmond, RN RN bb Rica Mari RN RN tl2 Tamir Lopez MD MD gs Corrections: (The following items were deleted from the chart) 06:28 06:16 Psych: Behavior/mood is pleasant, Affect is calm, Oriented to person, gs place, time, Patient has no thoughts/intents to harm self or others. Judgement / Insight is normal. Delusions/hallucinations slight flight ideas, gs 07:03 06:29 11/09/2018 06:29 Discharged to Home. Impression: Epilepsy and recurrent tl2 seizures; Schizophrenia. Condition is Stable. Forms are Medication Reconciliation Form, Thank You Letter, Antibiotic Education, Prescription Opioid Use. Follow up: Private Physician; When: 1 - 2 days; Reason: Re-evaluation by your physician. gs
[2018-11-09 06:40] LABS: Urine Blood TRACE (NEG); Urine Glucose NEGATIVE (NEG); Urine Protein NEGATIVE (NEG); Urine Specific Gravity 1.025 (1.005-1.030)
[2018-11-09 06:43] LABS: Urine Bacteria >50 /HPF (<20); Urine Culture Reflex Order NOT NEEDED; Urine Mucus MOD /HPF (NONE SEEN); Urine RBC NONE SEEN /HPF (NONE SEEN)
[2018-11-09 06:45] LABS: Barbiturates NEGATIVE (NEGATIVE); Benzodiazepines NEGATIVE (NEGATIVE); Cocaine NEGATIVE (NEGATIVE); METHAMPHETAM POSITIVE (NEGATIVE); Methadone NEGATIVE (NEGATIVE); Opiates NEGATIVE (NEGATIVE); Phencyclidine NEGATIVE (NEGATIVE); THC Cannibis NEGATIVE (NEGATIVE)
[2018-11-09 07:11] VITALS: TEMP 97.8
[2018-11-09 07:14] VITALS: BP 136/89; O2SAT 98
--- NOTE | 2018-11-09 07:43 | EKG ---
Test Date: 2018-11-09 Test Time: 04:49:42 Compound Filler: MARIELLA MEASUREMENT RESULTS: Intervals: Rate: 95 VT: 154 QRSD: 94 QT: 352 QTc: 442 [place]: P: 47 VT: 154 QRS: 36 T: 55 INTERPRETIVE STATEMENTS: Normal sinus rhythm Normal ECG Compared to ECG 03/29/2016 21:00:33 No significant changes Electronically Signed On 11-09-18 07:42:44 CDT by Rg Barrett
--- NOTE | 2018-11-09 09:17 | RAD REPORT ---
EXAM DESCRIPTION: RAD - Chest Single View - 11/09/2018 6:25 am CLINICAL HISTORY: Weakness, difficulty breathing COMPARISON: October 2010 TECHNIQUE: AP portable chest image was obtained 0504 hours . FINDINGS: Lungs are clear. Heart and vasculature are normal. No measurable pleural effusion and no p neumothorax. No acute bony abnormality seen. No acute aortic findings suspected. IMPRESSION: No acute cardiopulmonary process. No significant interval change.
--- NOTE | 2018-11-09 09:31 | RAD REPORT ---
EXAM DESCRIPTION: CT - Ct Stroke Brain Wo Cont - 11/09/2018 6:57 am CLINICAL HISTORY: Slurred speech. COMPARISON: None. TECHNIQUE: Axial [address] imaging of the brain. Reformatted coronal and sagittal images ob tained. This examination was performed according to our departmental dose optimization program, which include s automated exposure control, adjustment of the mA and/or kV according to patient size and/or use of iterative reconstruction technique. FINDINGS: Normal ventricle size. The extra-axial fluid spaces appear normal. Ruiz-white matter diffe rentiation is within normal limits. No edema or hemorrhage. No large acute territorial infarction. No mass or midline shift. No intracranial bleed. Normal cerebellum and vermis. Fourth ventricle is midline. Normal sella contents. The intraorbital soft tissues appear normal. There is significant mucosal thickening within the right maxillary antrum. Mild mucosal thickening in the ethmoid air cells and left maxillary antrum. Mastoi d air cells are clear. Intact skull base and calvarium. Unremarkable scalp soft tissues. IMPRESSION: 1. No intracranial acute finding. 2. Mucosal sinus disease. Electronically signed by: Ning Rangel DO 11/09/2018 5:22 AM CDT Due to temporary technical issues with the PACS/Fluency reporting system, reports are being signed by the in house radiologist as a courtesy to ensure prompt reporting. The interpreting radiologist is f ully responsible for the content of the report.
== END 2018-11-09 07:03 | disposition home or self-care (01) ==
LOC: ER 04:39
DX: G40.909 Epilepsy, unspecified, not intractable, without status epilepticus (principal); F20.9 Schizophrenia, unspecified; F41.9 Anxiety disorder, unspecified
CPT/HCPCS: 36415; 70450; 71045; 80048; 80076; 80307; 80320; 81003; 81015; 81025; 82962; 83735; 83880; 84484; 85025; 85610; 93005; 99284

== ENCOUNTER 2018-12-14 20:29 | Emergency (ER) | payer SELFPAY ==
--- NOTE | 2018-12-14 21:12 | EDPHYS ---
Physician Documentation [facility] Name: Indigo Estrada Age: 38 yrs Sex: Female : 1980 Arrival Date: 12/14/2018 Time: 20:34 Bed 6 Private MD: Gilberto Patton R ED Physician Tamir Lopez HPI: 12/14 22:35 The patient complains of pain to the left cheek and left jaw. The patient describes the gs headache as throbbing. Onset: The symptoms/episode began/occurred 6 month(s) ago. Associated signs and symptoms: Pertinent negatives: altered mental status, dizziness, fever, malaise, neck stiffness, paresthesias, Photophobia rash, vision changes. Severity of symptoms: At its worst the pain was moderate, in the emergency department the pain is unchanged. Headache History: The patient has had previous headaches and this one is similar to previous episodes. The symptoms are alleviated by nothing. the symptoms are aggravated by nothing. The patient has experienced similar episodes in the past, chronically. 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 - Social history:: Smoking status: Patient uses tobacco products, denies chronic smoking, but will smoke occasionally. - Ebola Screening: : No symptoms or risks identified at this time. ROS: 22:35 All other systems are negative. gs Exam: 22:35 Head/Face: Normocephalic, atraumatic. Eyes: Pupils equal round and reactive to light, gs extra-ocular motions intact. Lids and lashes normal. Conjunctiva and sclera are non-icteric and not injected. Cornea within normal limits. Periorbital areas with no swelling, redness, or edema. ENT: Nares patent. No nasal discharge, no septal abnormalities noted. Tympanic membranes are normal and external auditory canals are clear. Oropharynx with no redness, swelling, or masses, exudates, or evidence of obstruction, uvula midline. Mucous membranes moist. Neck: Trachea midline, no thyromegaly or masses palpated, and no cervical lymphadenopathy. Supple, full range of motion without nuchal rigidity, or vertebral point tenderness. No Meningismus. Chest/axilla: Normal chest wall appearance and motion. Nontender with no deformity. No lesions are appreciated. Cardiovascular: Regular rate and rhythm with a normal S1 and S2. No gallops, murmurs, or rubs. Normal PMI, no JVD. No pulse deficits. Respiratory: Lungs have equal breath sounds bilaterally, clear to auscultation and percussion. No rales, rhonchi or wheezes noted. No increased work of breathing, no retractions or nasal flaring. Abdomen/GI: Soft, non-tender, with normal bowel sounds. No distension or tympany. No guarding or rebound. No evidence of tenderness throughout. Back: No spinal tenderness. No costovertebral tenderness. Full range of motion. Skin: Warm, dry with normal turgor. Normal color with no rashes, no lesions, and no evidence of cellulitis. MS/ Extremity: Pulses equal, no cyanosis. Neurovascular intact. Full, normal range of motion. Neuro: Awake and alert, GCS 15, oriented to person, place, time, and situation. Cranial nerves II-XII grossly intact. Motor strength 5/5 in all extremities. Sensory grossly intact. Cerebellar exam normal. Normal gait. 22:35 Constitutional: The patient appears alert, awake. Vital Signs: 20:44 BP 178 / 102; Pulse 93; Resp 18; Temp 97.8; Pulse Ox 98% on R/A; Weight 81.65 kg; aa1 Height 5 ft. 2 in. (157.48 cm); Pain 8/10; 21:20 BP 152 / 82; Pulse 90; Resp 16; Pulse Ox 99% on R/A; rr5 20:44 Body Mass Index 32.92 (81.65 kg, 157.48 cm) aa1 MDM: 21:08 Patient medically screened. gs 22:35 Differential diagnosis: neuralgia,om, neck pain. Data reviewed: vital signs, nurses gs notes, old medical records. Counseling: I had a detailed discussion with the patient and/or guardian regarding: the historical points, exam findings, and any diagnostic results supporting the discharge/admit diagnosis, the need for outpatient follow up, a neurologist. Administered Medications: No medications were administered Disposition: 12/14/18 21:12 Discharged to Home. Impression: Atypical facial pain. - Condition is Stable. - Discharge Instructions: Managing Your Hypertension. - Prescriptions for Neurontin 300 mg Oral Capsule - take 1 capsule by ORAL route once daily; 15 capsule. - Medication Reconciliation Form, Thank You Letter, Antibiotic Education, Prescription Opioid Use form. - Follow up: Private Physician; When: 1 - 2 days; Reason: Re-evaluation by your physician. Follow up: Gianni Purcell MD; When: 1 - 2 days; Reason: Re-evaluation by your physician. Signatures: Jaz Newman RN RN aa1 Tamir Lopez MD MD gs Jesus Payne RN RN rr5 Corrections: (The following items were deleted from the chart) 21:18 21:12 12/14/2018 21:12 Discharged to Home. Impression: Atypical facial pain. Condition gs is Stable. Forms are Medication Reconciliation Form, Thank You Letter, Antibiotic Education, Prescription Opioid Use. Follow up: Private Physician; When: 1 - 2 days; Reason: Re-evaluation by your physician. gs 21:25 21:18 12/14/2018 21:12 Discharged to Home. Impression: Atypical facial pain. Condition rr5 is Stable. Discharge Instructions: Managing Your Hypertension. Prescriptions for Neurontin 300 mg Oral Capsule - take 1 capsule by ORAL route once daily; 15 capsule. and Forms are Medication Reconciliation Form, Thank You Letter, Antibiotic Education, Prescription Opioid Use. Follow up: Private Physician; When: 1 - 2 days; Reason: Re-evaluation by your physician. Follow up: Gianni Purcell; When: 1 - 2 days; Reason: Re-evaluation by your physician. gs
--- NOTE | 2018-12-14 21:12 | ER ---
Nurse's Notes [facility] Name: Indigo Estrada Age: 38 yrs Sex: Female : 1980 Arrival Date: 12/14/2018 Time: 20:34 Bed 6 Private MD: Gilberto Patton R Diagnosis: Atypical facial pain Presentation: 12/14 20:42 Presenting complaint: Patient states: headache, neck pain, ear pain and pain in throat aa1 off and on for several months but is worse today. States, "It feels like my neck is broken and I can't open my eyes.". Transition of care: patient was not received from another setting of care. Onset of symptoms was August 2018. Risk Assessment: Do you want to hurt yourself or someone else? Patient reports no desire to harm self or others. Initial Sepsis Screen: Does the patient meet any 2 criteria? No. Patient's initial sepsis screen is negative. Does the patient have a suspected source of infection? No. Patient's initial sepsis screen is negative. Care prior to arrival: None. 20:42 Method Of Arrival: Ambulatory aa1 20:42 Acuity: GRISELDA 3 aa1 Triage Assessment: 20:44 General: Appears in no apparent distress. comfortable, Behavior is calm, cooperative, aa1 appropriate for age. 20:45 Headache History: The patient has had previous headaches and this one is similar to rr5 previous episodes. Pain: Also complains of. 20:45 Pain: Pain currently is 8 out of 10 on a pain scale. Pain began months ago. 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 - Social history:: Smoking status: Patient uses tobacco products, denies chronic smoking, but will smoke occasionally. - Ebola Screening: : No symptoms or risks identified at this time. Screenin:50 Abuse screen: Denies threats or abuse. Denies injuries from another. Nutritional rr5 screening: No deficits noted. Tuberculosis screening: No symptoms or risk factors identified. Fall Risk None identified. Total Sanchez Fall Scale indicates No Risk (0-24 pts). Assessment: 20:45 General: Appears in no apparent distress. uncomfortable, Behavior is calm, cooperative, rr5 appropriate for age. 20:45 Pain: Complains of pain in left jaw and cheek Pain does not radiate. Pain currently is rr5 8 out of 10 on a pain scale. Quality of pain is described as aching, Pain began gradually, Is intermittent. Neuro: Level of Consciousness is awake, alert, obeys commands, Oriented to person, place, time, situation, Appropriate for age Emergency Department Physician are equal bilaterally Moves all extremities. Full function Speech is normal, Facial symmetry appears normal, Reports headache neck. Cardiovascular: Capillary refill < 3 seconds Patient's skin is warm and dry. Respiratory: Airway is patent Respiratory effort is even, unlabored, Respiratory pattern is regular, symmetrical. GI: No signs and/or symptoms were reported involving the gastrointestinal system. : No signs and/or symptoms were reported regarding the genitourinary system. EENT: Reports pain in throat. Derm: No signs and/or symptoms reported regarding the dermatologic system. Musculoskeletal: Circulation, motion, and sensation intact. Capillary refill < 3 seconds. 21:23 Reassessment: Patient appears in no apparent distress at this time. Patient is alert, rr5 oriented x 3, equal unlabored respirations, skin warm/dry/pink. ED provider spoke to patient. discharge instruction given and explained without complaints made. Vital Signs: 20:44 BP 178 / 102; Pulse 93; Resp 18; Temp 97.8; Pulse Ox 98% on R/A; Weight 81.65 kg; aa1 Height 5 ft. 2 in. (157.48 cm); Pain 8/10; 21:20 BP 152 / 82; Pulse 90; Resp 16; Pulse Ox 99% on R/A; rr5 20:44 Body Mass Index 32.92 (81.65 kg, 157.48 cm) aa1 ED Course: 20:34 Patient arrived in ED. es 20:35 Gilberto Patton MD is Private Physician. es 20:44 Triage completed. aa1 20:44 Arm band placed on right wrist. Patient placed in an exam room, on a stretcher. aa1 20:45 Patient has correct armband on for positive identification. Call light in reach. rr5 20:52 Lopez, Tamir, MD is Attending Physician. 21:15 Gianni Purcell MD is Referral Physician. 21:16 Jesus Payne, RN is Primary Nurse. rr5 21:20 No provider procedures requiring assistance completed. Patient did not have IV access rr5 during this emergency room visit. Administered Medications: No medications were administered Outcome: 21:12 Discharge ordered by MD. gs 21:20 Discharged to home ambulatory. rr5 21:20 Condition: stable 21:20 Discharge instructions given to patient, Instructed on discharge instructions, follow up and referral plans. medication usage, Demonstrated understanding of instructions, follow-up care, medications, Prescriptions given X 1. 21:25 Patient left the ED. rr5 Signatures: Jaz Newman, RN RN aa1 Ashia Sorto Gregory, MD MD Jesus Payne, RN RN rr5
[2018-12-14 21:40] VITALS: BP 178/102; TEMP 97.8; O2SAT 98
== END 2018-12-14 21:25 | disposition home or self-care (01) ==
LOC: ER 20:29
DX: G50.1 Atypical facial pain (principal); Z72.0 Tobacco use
CPT/HCPCS: 99282

== ENCOUNTER 2020-04-24 11:23 | Emergency (ER) | payer SELFPAY ==
--- NOTE | 2020-04-24 11:54 | EDPHYS ---
Physician Documentation [facility] Name: Indigo Estrada Age: 39 yrs Sex: Female : 1980 Arrival Date: 04/24/2020 Time: 11:26 Bed 8 Private MD: ED Physician Jose De Anda HPI: 04/24 11:46 This 39 yrs old Female presents to ER via Ambulatory with complaints of Eye rn Swelling, facial swelling and pain. 11:46 The patient is experiencing pain, redness, The patient sustained None. to the right eye.rn 11:47 Onset: The symptoms/episode began/occurred 2 day(s) ago. Aggravated by nothing. rn Alleviated by nothing. Severity of symptoms: At their worst the symptoms were moderate in the emergency department the symptoms are unchanged. The patient has not experienced similar symptoms in the past. Reports having left jaw pain and facial pain for almost 1 week, now today noticed redness to left jaw line and right periorbital region. No fever. No trauma. No new medication or exposure. . Historical: - Allergies: 11:35 No Known Allergies; ll1 - PMHx: 11:35 Anxiety; Schizophrenia; Seizures; ll1 - PSHx: 11:35 None; ll1 - Immunization history:: Flu vaccine is not up to date. - Social history:: Smoking status: Patient reports the use of cigarette tobacco products, smokes one-half pack cigarettes per day. - Family history:: not pertinent. - Hospitalizations: : No recent hospitalization is reported. ROS: 11:47 Constitutional: Negative for fever, chills, and weight loss, Eyes: + right periorbital rn redness and rash, no eye pain or drainage. ENT: Negative for injury, and discharge, Neck: Negative for injury, pain, and swelling, Cardiovascular: Negative for chest pain, palpitations, and edema, Respiratory: Negative for shortness of breath, cough, wheezing, and pleuritic chest pain, Abdomen/GI: Negative for abdominal pain, nausea, vomiting, diarrhea, and constipation, MS/Extremity: Negative for injury and deformity, Skin: Negative for injury Neuro: Negative for headache, weakness, numbness, tingling, and seizure. Exam: 11:47 Constitutional: This is a well developed, well nourished patient who is awake, alert, rn and in no acute distress. Head/Face: Normocephalic, atraumatic. Eyes: Pupils equal round and reactive to light, extra-ocular motions intact. Lids and lashes normal. Conjunctiva and sclera are non-icteric and not injected. Cornea within normal limits. Right periorbital region with blanching erythema, no pustules or flutuance. ENT: Oropharynx with no redness, swelling, or masses, exudates, or evidence of obstruction, uvula midline. Mucous membranes moist. Poor dentition without obvious abscess. Neck: Trachea midline, + bilateral cervical lymphadenopathy, neck supple Cardiovascular: Tachycardic, regular. Respiratory: No increased work of breathing, no retractions or nasal flaring. Skin: Warm, dry MS/ Extremity: Pulses equal, no cyanosis. Neuro: Awake and alert, GCS 15, oriented to person, place, time, and situation. Cranial nerves II-XII grossly intact. Motor strength 5/5 in all extremities. Sensory grossly intact. Cerebellar exam normal. Normal gait. Vital Signs: 11:34 BP 158 / 105; Pulse 118; Resp 18; Temp 98.1; Pulse Ox 100% ; Weight 113.4 kg; Height 5 ll1 ft. 2 in. (157.48 cm); Pain 9/10; 11:45 BP 147 / 98; Pulse 107; Resp 18; Pulse Ox 99% on R/A; em 11:34 Body Mass Index 45.73 (113.40 kg, 157.48 cm) ll1 MDM: 11:39 Patient medically screened. rn 11:52 Differential diagnosis: periorbital cellulitis, facial cellulitis, lymphadenitis. Data rn reviewed: vital signs, nurses notes, and as a result, I will discharge patient. Counseling: I had a detailed discussion with the patient and/or guardian regarding: the historical points, exam findings, and any diagnostic results supporting the discharge/admit diagnosis, the need for outpatient follow up, to return to the emergency department if symptoms worsen or persist or if there are any questions or concerns that arise at home. Special discussion: I discussed with the patient/guardian in detail that at this point there is no indication for admission to the hospital. It is understood, however, that if the symptoms persist or worsen the patient needs to return immediately for re-evaluation. Administered Medications: 11:56 Drug: Bactrim (160 mg-800 mg (DS) 1 tablet Route: PO; em 12:10 Follow up: Response: No adverse reaction em 11:56 Drug: KeFLEX 500 mg Route: PO; em 12:10 Follow up: Response: No adverse reaction em 11:56 Drug: predniSONE 60 mg Route: PO; em 12:10 Follow up: Response: No adverse reaction em Disposition: 04/24/20 11:53 Discharged to Home. Impression: Cellulitis of face. - Condition is Stable. - Discharge Instructions: Cellulitis, Adult. - Prescriptions for Keflex 500 mg Oral Capsule - take 1 capsule by ORAL route every 12 hours for 10 days; 20 capsule. Medrol (Manuel) 4 mg Oral Tablets, Dose Pack - take 1 tablet by ORAL route as directed - follow package instructions; 1 packet. Bactrim DS 800- 160 mg Oral Tablet - take 1 tablet by ORAL route every 12 hours for 10 days; 20 tablet. - Medication Reconciliation Form, Thank You Letter, Antibiotic Education, Prescription Opioid Use form. - Follow up: Private Physician; When: As needed; Reason: Recheck today's complaints, Re-evaluation by your physician. - Problem is new. - Symptoms are unchanged. Signatures: Russ Del Real, RN RN Jose Hopkins MD MD rn Lewis, Lynsay, RN RN ll1 Corrections: (The following items were deleted from the chart) 12:11 11:53 04/24/2020 11:53 Discharged to Home. Impression: Cellulitis of face. Condition is em Stable. Forms are Medication Reconciliation Form, Thank You Letter, Antibiotic Education, Prescription Opioid Use. Follow up: Private Physician; When: As needed; Reason: Recheck today's complaints, Re-evaluation by your physician. Problem is new. Symptoms are unchanged. rn
--- NOTE | 2020-04-24 11:54 | ER ---
Nurse's Notes [facility] Name: Indigo Estrada Age: 39 yrs Sex: Female : 1980 Arrival Date: 04/24/2020 Time: 11:26 Bed 8 Private MD: Diagnosis: Cellulitis of face Presentation: 04/24 11:34 Chief complaint: Patient states: Left jaw pain for 6 days. Eye swelling, redness, for 2 ll1 days. Coronavirus screen: Client denies travel out of the [place] in the last 14 days. At this time, the client does not indicate any symptoms associated with coronavirus-19. Ebola Screen: Patient denies travel to an Ebola-affected area in the 21 days before illness onset. Initial Sepsis Screen: Does the patient meet any 2 criteria? HR > 90 bpm. No. Patient's initial sepsis screen is negative. Risk Assessment: Do you want to hurt yourself or someone else? Patient reports no desire to harm self or others. Onset of symptoms was April 19, 2020. 11:34 Method Of Arrival: Ambulatory ll1 11:34 Acuity: GRISELDA 2 ll1 Historical: - Allergies: 11:35 No Known Allergies; ll1 - PMHx: 11:35 Anxiety; Schizophrenia; Seizures; ll1 - PSHx: 11:35 None; ll1 - Immunization history:: Flu vaccine is not up to date. - Social history:: Smoking status: Patient reports the use of cigarette tobacco products, smokes one-half pack cigarettes per day. - Family history:: not pertinent. - Hospitalizations: : No recent hospitalization is reported. Screenin:01 Abuse screen: Denies threats or abuse. Nutritional screening: No deficits noted. em Tuberculosis screening: No symptoms or risk factors identified. Fall Risk None identified. Assessment: 11:45 General: Appears in no apparent distress. comfortable, uncomfortable, Behavior is calm, em cooperative, appropriate for age, Denies fever. Pain: Complains of pain in left submandibular area Pain currently is 0 out of 10 on a pain scale. Neuro: Level of Consciousness is awake, alert, obeys commands, Oriented to person, place, time, situation, Appropriate for age. Cardiovascular: Capillary refill < 3 seconds Patient's skin is warm and dry. Respiratory: Airway is patent Respiratory effort is even, unlabored, Respiratory pattern is regular, symmetrical. GI: Abdomen is round non-distended. Derm: Skin is intact, is healthy with good turgor, Skin is pink, warm \T\ dry. Musculoskeletal: Capillary refill < 3 seconds, Range of motion: intact in all extremities, Swelling present in right eye and left submandibular area. Vital Signs: 11:34 BP 158 / 105; Pulse 118; Resp 18; Temp 98.1; Pulse Ox 100% ; Weight 113.4 kg; Height 5 ll1 ft. 2 in. (157.48 cm); Pain 9/10; 11:45 BP 147 / 98; Pulse 107; Resp 18; Pulse Ox 99% on R/A; em 11:34 Body Mass Index 45.73 (113.40 kg, 157.48 cm) ll1 ED Course: 11:26 Patient arrived in ED. mr 11:35 Triage completed. ll1 11:35 Arm band placed on. ll1 11:39 Jose De Anda MD is Attending Physician. rn 11:42 Russ Del Real RN is Primary Nurse. em 12:01 Patient has correct armband on for positive identification. em 12:07 No provider procedures requiring assistance completed. Patient did not have IV access em during this emergency room visit. Administered Medications: 11:56 Drug: Bactrim (160 mg-800 mg (DS) 1 tablet Route: PO; em 12:10 Follow up: Response: No adverse reaction em 11:56 Drug: KeFLEX 500 mg Route: PO; em 12:10 Follow up: Response: No adverse reaction em 11:56 Drug: predniSONE 60 mg Route: PO; em 12:10 Follow up: Response: No adverse reaction em Outcome: 11:53 Discharge ordered by . rn 12:07 Discharged to home ambulatory. em 12:07 Condition: good 12:07 Discharge instructions given to patient, Instructed on discharge instructions, follow up and referral plans. medication usage, Demonstrated understanding of instructions, follow-up care, medications, Prescriptions given X 3. 12:11 Patient left the ED. em Signatures: Talisha Huffman Edgar, RN RN em Jose De Anda MD MD rn Lewis, Lynsay, RN RN [facility]
[2020-04-24] MEDS ORDERED: predniSONE 20 MG TAB ONE (12:04)
[2020-04-24] MEDS ORDERED: SMZ./TMP. 800/160 MG TABLET ONE (12:04)
[2020-04-24] MEDS ORDERED: CEPHALEXIN 250 MG CAP ONE (12:04)
[2020-04-24 12:31] VITALS: TEMP 98.1
[2020-04-24 12:32] VITALS: BP 147/98; O2SAT 99
--- OUTSIDE RECORDS SUMMARY | 2020-04-27 06:24 | XMS REPORT | Continuity of Care Document ---
:1980 Author Organization [facility] t Address [address] [place] [address] Dr. Ricardo [address] [place] [id number] Care Team Providers Name Role Phone Unavailable Unavailable Unavailable Problems This patient has no known problems. Allergies, Adverse Reactions, Alerts This patient has no known allergies or adverse reactions. Medications This patient has no known medications. Procedures This patient has no known procedures. Results This patient has no known results.
== END 2020-04-24 12:11 | disposition home or self-care (01) ==
LOC: ER 11:23
DX: L03.211 Cellulitis of face (principal); F17.210 Nicotine dependence, cigarettes, uncomplicated
CPT/HCPCS: 99283; J7512

== ENCOUNTER 2021-05-13 10:13 | Emergency (ER) | payer SELFPAY ==
--- NOTE | 2021-05-13 10:53 | ER ---
Nurse's Notes [facility] Name: Indigo Estrada Age: 40 yrs Sex: Female : 1980 Arrival Date: 05/13/2021 Time: 10:14 Bed 13 Private MD: Darrian Mcintyre H Diagnosis: Dental caries, unspecified-Dental pain Presentation: 05/13 10:21 Chief complaint: Patient states: Eye pains, FARIAS, jaw pains, lymph node swelling "all the ll1 time" for months. States she comes here all the time for this, and they can never figure out what's going on. + ear pain today. Coronavirus screen: Vaccine status: Patient reports being unvaccinated. Client denies travel out of the [place] in the last 14 days. At this time, the client does not indicate any symptoms associated with coronavirus-19. Ebola Screen: Patient denies travel to an Ebola-affected area in the 21 days before illness onset. Mechanism of Injury: No Mechanism of Injury. The patient denies any loss of vision. Initial Sepsis Screen: Does the patient meet any 2 criteria? HR > 90 bpm. No. Patient's initial sepsis screen is negative. Does the patient have a suspected source of infection? No. Patient's initial sepsis screen is negative. Risk Assessment: Do you want to hurt yourself or someone else? Patient reports no desire to harm self or others. Onset of symptoms. Onset of symptoms is unknown. 10:21 Method Of Arrival: Ambulatory ll1 10:21 Acuity: GRISELDA 3 ll1 Historical: - Allergies: 10:21 No Known Drug Allergies; ll1 - PMHx: 10:21 Anxiety; Schizophrenia; Seizures; ll1 - Immunization history:: Client reports having NOT received the Covid vaccine. - Social history:: Smoking status: Patient reports the use of cigarette tobacco products, denies chronic smoking, but will smoke occasionally. Screenin:35 Abuse screen: Denies threats or abuse. Denies injuries from another. Nutritional jw6 screening: No deficits noted. Tuberculosis screening: No symptoms or risk factors identified. Fall Risk None identified. Assessment: 10:35 General: Appears distressed, uncomfortable, Behavior is cooperative, restless. Pain: jw6 Complains of pain in right eye and right ear Pain does not radiate. Pain currently is 8 out of 10 on a pain scale. Neuro: No deficits noted. Cardiovascular: No deficits noted. Respiratory: No deficits noted. GI: No deficits noted. : No deficits noted. EENT: Eyes are tearing on outer aspect of conjuctiva of right eye Sclera/Cornea are clear in outer aspect of conjuctiva of right eye, iris of right eye and inner aspect of conjuctiva of right eye Reports pain in right eye and right ear Pain is 8 out of 10 on a pain scale. Derm: No deficits noted. Musculoskeletal: No deficits noted. Vital Signs: 10:21 BP 165 / 100; Pulse 113; Resp 17; Temp 98.3; Pulse Ox 98% on R/A; Height 5 ft. 2 in. ll1 (157.48 cm); Pain 8/10; Vitals: 10:35 Cardiac Rhythm Assessment Regular. jw6 ED Course: 10:14 Patient arrived in ED. ds1 10:15 Darrian Mcintyre DO is Private Physician. ds1 10:18 See Hargrove NP is PHCP. pm1 10:18 Jarrod Serrato MD is Attending Physician. pm1 10:21 Arm band placed on Patient placed in an exam room, on a stretcher. ll1 10:24 Triage completed. ll1 10:34 Rosita Rivas is Primary Nurse. jw6 10:35 Patient has correct armband on for positive identification. Bed in low position. Call jw6 light in reach. Side rails up X 1. Administered Medications: 10:45 Drug: HYDROcodone-acetaminophen 5 mg-325 mg 2 tabs Route: PO; jw6 10:45 Follow up: Response: No adverse reaction jw6 10:45 Drug: Augmentin (Amoxicillin-Clavulanate) 875 mg Route: PO; jw6 10:45 Follow up: Response: No adverse reaction jw6 Outcome: 10:52 Discharge ordered by . pm1 11:07 Patient left the ED. jw6 Signatures: Jeannine Ramírez ds1 See Hargrove NP [employer] pm1 Ricky Peace RN RN ll1 Rosita Rivas jw6
--- NOTE | 2021-05-13 10:53 | EDPHYS ---
Physician Documentation [facility] Name: Indigo Estrada Age: 40 yrs Sex: Female : 1980 Arrival Date: 05/13/2021 Time: 10:14 Bed 13 Private MD: Darrian Mcintyre H ED Physician Jarrod Serrato HPI: 05/13 10:43 This 40 yrs old Female presents to ER via Ambulatory with complaints of Right pm1 Facial Pain. 10:43 The patient presents with pain, to right sided facial pain. The complaints affect the pm1 right side of face. Onset: The symptoms/episode began/occurred Ongoing for multiple months. 10:43 Modifying factors: The symptoms are alleviated by nothing. Associated signs and pm1 symptoms: Pertinent negatives: fever, sore throat. Severity of symptoms: in the emergency department the symptoms are worse. The patient has experienced similar episodes in the past, chronically, on going for at least 1 year. The patient has not recently seen a physician. Had tooth removal about 1.5 months ago which was believed to be the problematic tooth. Multiple teeth present that could also be a cause but were not removed at that time. Historical: - Allergies: 10:21 No Known Drug Allergies; ll1 - PMHx: 10:21 Anxiety; Schizophrenia; Seizures; ll1 - Immunization history:: Client reports having NOT received the Covid vaccine. - Social history:: Smoking status: Patient reports the use of cigarette tobacco products, denies chronic smoking, but will smoke occasionally. ROS: 10:43 Constitutional: Negative for fever, chills, and weight loss. pm1 10:43 Neck: Negative for injury, pain, and swelling, Cardiovascular: Negative for chest pain, palpitations, and edema, Respiratory: Negative for shortness of breath, cough, wheezing, and pleuritic chest pain, Abdomen/GI: Negative for abdominal pain, nausea, vomiting, diarrhea, and constipation, MS/Extremity: Negative for injury and deformity, Skin: Negative for injury, rash, and discoloration. 10:43 ENT: Positive for dental pain, ear pain, right side, Negative for sore throat, difficulty swallowing, difficulty handling secretions. 10:43 All other systems are negative. Exam: 10:43 Constitutional: This is a well developed, well nourished patient who is awake, alert, pm1 and in no acute distress. Head/Face: Normocephalic, atraumatic. 10:43 Back: No spinal tenderness. No costovertebral tenderness. Full range of motion. Skin: Warm, dry with normal turgor. Normal color with no rashes, no lesions, and no evidence of cellulitis. MS/ Extremity: Pulses equal, no cyanosis. Neurovascular intact. Full, normal range of motion. 10:43 ENT: Exam is negative for acute changes, External ear(s): are unremarkable, Ear canal(s): are normal, TM's: are normal, no acute changes, Dental exam: dental caries, that is moderate, diffusely, specifically in the upper right second molar (#2) and upper right first molar (#3), Voice: is normal, No trismus present. 10:43 Cardiovascular: Exam negative for acute changes, Rate: tachycardic, Rhythm: regular, Pulses: no pulse deficits are appreciated. 10:43 Respiratory: Exam negative for acute changes, respiratory distress, shortness of breath. 10:43 Neuro: Exam negative for acute changes, Orientation: is normal, Mentation: is normal, Motor: is normal, moves all fours, Sensation: is normal, no obvious gross deficits. Vital Signs: 10:21 BP 165 / 100; Pulse 113; Resp 17; Temp 98.3; Pulse Ox 98% on R/A; Height 5 ft. 2 in. ll1 (157.48 cm); Pain 8/10; MDM: 10:19 Patient medically screened. [facility] 10:48 Counseling: I had a detailed discussion with the patient and/or guardian regarding: the pm1 historical points, exam findings, and any diagnostic results supporting the discharge/admit diagnosis, the need for outpatient follow up, for definitive care, a dentist, to return to the emergency department if symptoms worsen or persist or if there are any questions or concerns that arise at home. 10:48 Data reviewed: vital signs. Data interpreted: Pulse oximetry: on room air is 98 %. pm1 Interpretation: normal. Administered Medications: 10:45 Drug: HYDROcodone-acetaminophen 5 mg-325 mg 2 tabs Route: PO; jw6 10:45 Follow up: Response: No adverse reaction jw6 10:45 Drug: Augmentin (Amoxicillin-Clavulanate) 875 mg Route: PO; jw6 10:45 Follow up: Response: No adverse reaction jw6 Disposition: 05/14 10:28 Co-signature as Attending Physician, Jarrod Serrato MD I agree with the assessment and [facility] plan of care. Disposition Summary: 05/13/21 10:52 Discharge Ordered Location: Home pm1 Problem: new pm1 Symptoms: have improved pm1 Condition: Stable pm1 Diagnosis - Dental caries, unspecified - Dental pain pm1 Followup: pm1 - With: Emergency Department - When: As needed - Reason: Worsening of condition Followup: pm1 - With: Private Physician - When: 2 - 3 days - Reason: Recheck today's complaints, Continuance of care, Re-evaluation by your physician Discharge Instructions: - Discharge Summary Sheet pm1 - Dental Caries, Adult pm1 - Dental Pain pm1 Forms: - Medication Reconciliation Form pm1 - Thank You Letter pm1 - Antibiotic Education pm1 - Prescription Opioid Use pm1 Prescriptions: - Augmentin 875-125 mg Oral Tablet - take 1 tablet by ORAL route every 12 hours for 10 days; 20 tablet; Refills: 0, pm1 Product Selection Permitted - acetaminophen-codeine 300-15 mg Oral tablet - take 2 tablet by ORAL route every 6 hours As needed as needed; 20 tablet; pm1 Refills: 0, Product Selection Permitted Signatures: Jarrod Serrato MD MD cha Marinas, Patrick, NP [employer] pm1 Ricky Peace, RN RN ll1 Rosita Rivas jw6
[2021-05-13] MEDS ORDERED: HYDROCODONE/APAP 5/325 MG TAB ONE (11:08)
[2021-05-13] MEDS ORDERED: AMOX/K CLAV 875 MG TAB ONE (11:09)
[2021-05-13 11:20] VITALS: BP 165/100; TEMP 98.3; O2SAT 98
== END 2021-05-13 11:07 | disposition home or self-care (01) ==
LOC: ER 10:13
DX: K02.9 Dental caries, unspecified (principal); F17.210 Nicotine dependence, cigarettes, uncomplicated
CPT/HCPCS: 99282

== ENCOUNTER 2022-07-31 11:55 | Emergency (ER) | payer SELFPAY ==
--- OUTSIDE RECORDS SUMMARY | 2022-07-31 11:58 | XMS REPORT | Continuity of Care Document ---
:1980 Author Organization [facility] t Address [address] [place] [address] Dr. Ricardo [address] [place] [id number] Care Team Providers Name Role Phone Unavailable Unavailable Unavailable Problems This patient has no known problems. Allergies, Adverse Reactions, Alerts This patient has no known allergies or adverse reactions. Medications This patient has no known medications. Procedures This patient has no known procedures. Results This patient has no known results.
[2022-07-31] MEDS ORDERED: METOCLOPRAMIDE 10 MG/2mL INJ ONE (12:23)
[2022-07-31] MEDS ORDERED: NA CHLORIDE 0.9% 1,000 ML ONE (12:24)
[2022-07-31] MEDS ORDERED: dexAMETHasone 10 MG/ML VIAL ONE (12:24)
[2022-07-31] MEDS ORDERED: DIPHENHYDRAMINE 50 MG/ML VIAL ONE (12:24)
--- NOTE | 2022-07-31 12:40 | RAD REPORT ---
EXAM DESCRIPTION: CT - Head Brain Wo Cont - 07/31/2022 12:30 pm CLINICAL HISTORY: headache Headache, drowsiness COMPARISON: Ct Stroke Brain Wo Cont dated 11/09/2018; Head Brain Wo Cont dated 06/01/2018 TECHNIQUE: All CT scans are performed using dose optimization technique as appropriate and may inclu de automated exposure control or mA/KV adjustment according to patient size. FINDINGS: No intracranial hemorrhage, hydrocephalus or extra-axial fluid collection.No areas of brai n edema or evidence of midline shift. Mild mucosal thickening right maxillary antrum ethmoid air cells. The calvarium is intact. IMPRESSION: No acute intracranial abnormality.
[2022-07-31 13:11] LABS: Absolute Lymphocytes (CBC) 0.3 K/uL (0.7-4.9); Hematocrit 37.7 % (36.0-45.0); Lymphocytes % 4.1 % (15.3-44.8); MCV 84.1 fL (80-100); MPV 7.9 fL (7.6-11.3); RBC Red Blood Cell Count 4.48 M/uL (3.86-4.86)
[2022-07-31] MEDS ORDERED: KETOROLAC 30 MG/ML INJ ONE (13:23)
[2022-07-31 13:26] LABS: Potassium 3.8 mmol/L (3.5-5.1)
--- NOTE | 2022-07-31 14:26 | EDPHYS ---
Physician Documentation [facility] Name: Indigo Estrada Age: 42 yrs Sex: Female : 1980 Arrival Date: 07/31/2022 Time: 11:59 Bed 18 Private MD: ED Physician Memo Velasquez HPI: 07/31 14:53 This 42 yrs old Female presents to ER via EMS with complaints of headache. kb 14:58 The patient complains of pain to the right faith and left faith. The patient kb describes the headache as throbbing. Onset: The symptoms/episode began/occurred last night. Associated signs and symptoms: Pertinent positives: Photophobia. Severity of symptoms: At its worst the pain was moderate, in the emergency department the pain is unchanged. Headache History: The patient has had previous headaches and this one is more severe than previous episodes. The symptoms are alleviated by nothing. the symptoms are aggravated by lights. The patient has not experienced similar symptoms in the past. The patient has not recently seen a physician. 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 - Social history:: Smoking status: Patient reports the use of cigarette tobacco products, denies chronic smoking, but will smoke occasionally. ROS: 14:54 Constitutional: Negative for fever, chills, and weight loss. kb 14:54 Neck: Positive for pain with movement, pain at rest, tenderness, of the right posterior aspect of neck. 14:54 Neuro: Positive for headache. 14:54 All other systems are negative. Exam: 14:54 Constitutional: This is a well developed, well nourished patient who is awake, alert, kb and in no acute distress. Head/Face: Normocephalic, atraumatic. ENT: Moist Mucous membranes Cardiovascular: Regular rate and rhythm with a normal S1 and S2. No gallops, murmurs, or rubs. No pulse deficits. Respiratory: Respirations even and unlabored. No increased work of breathing. Talking in full sentences Abdomen/GI: Soft, non-tender. No distention Skin: Warm, dry with normal turgor. Normal color. MS/ Extremity: Pulses equal, no cyanosis. Neurovascular intact. Full, normal range of motion. Neuro: Awake and alert, GCS 15, oriented to person, place, time, and situation. Moves all extremities. Normal gait. Psych: Awake, alert, with orientation to person, place and time. Behavior, mood, and affect are within normal limits. 14:54 Neck: External neck: tenderness, that is mild, of the right posterior aspect of neck, C-spine: appears grossly normal, ROM/movement: is normal. Vital Signs: 11:59 BP 181 / 91; Pulse 79; Resp 20; Pulse Ox 96% ; Weight 113.4 kg; Height 5 ft. 2 in. kr3 (157.48 cm); Pain 10/10; 13:47 BP 150 / 89; Pulse 65; Resp 17; Pulse Ox 96% on R/A; kr3 14:59 BP 150 / 89; Pulse 65; Pulse Ox 98% on R/A; kr3 11:59 Body Mass Index 45.73 (113.40 kg, 157.48 cm) kr3 Tyra Coma Score: 14:55 Eye Response: spontaneous(4). Verbal Response: oriented(5). Motor Response: obeys kb commands(6). Total: 15. MDM: 12:12 Patient medically screened. kb 14:55 Data reviewed: vital signs, nurses notes. I considered the following discharge kb prescriptions or medication management in the emergency department I discussed and recommended Over The Counter medications, Pain Medications: At this time, prescription pain medications are not recommended. Counseling: I had a detailed discussion with the patient and/or guardian regarding: the historical points, exam findings, and any diagnostic results supporting the discharge/admit diagnosis, lab results, radiology results, the need for outpatient follow up, a family practitioner, to return to the emergency department if symptoms worsen or persist or if there are any questions or concerns that arise at home. Response to treatment: the patient's symptoms have resolved after treatment, the patient's pain is gone. 07/31 12:18 Order name: CBC with Diff; Complete Time: 13:21 kb 07/31 12:18 Order name: Basic Metabolic Panel; Complete Time: 13:28 kb 07/31 12:18 Order name: CT Head Brain wo Cont; Complete Time: 12:50 kb 07/31 12:18 Order name: IV Start; Complete Time: 13:19 kb Administered Medications: 13:00 Drug: Reglan (metoCLOPramide) 10 mg Route: IVP; Site: right antecubital; kr3 13:00 Drug: Benadryl (diphenhydrAMINE) 12.5 mg Route: IVP; Site: right antecubital; kr3 13:00 Drug: Decadron - Dexamethasone 10 mg Route: IVP; Site: right antecubital; kr3 13:05 Drug: NS 0.9% 1000 ml Route: IV; Rate: 1000 ml; Site: right antecubital; kr3 15:08 Follow up: Response: No adverse reaction; IV Status: Completed infusion; IV Intake: kr3 1000ml 14:00 Drug: Ketorolac 15 mg Route: IVP; Site: right antecubital; kr3 Disposition Summary: 07/31/22 14:25 Discharge Ordered Location: Home kb Condition: Stable kb Diagnosis - Headache kb Followup: kb - With: Emergency Department - When: As needed - Reason: Worsening of condition Followup: kb - With: Private Physician - When: 2 - 3 days - Reason: Recheck today's complaints, Continuance of care, Re-evaluation by your physician Discharge Instructions: - Discharge Summary Sheet kb - General Headache Without Cause, [id number] kb Forms: - Medication Reconciliation Form kb - Thank You Letter kb - Antibiotic Education kb - Prescription Opioid Use kb Signatures: Dispatcher [employer] Candy Carbajal, VINH MEJIA-Katharine Mccauley, RN RN kr3
--- NOTE | 2022-07-31 14:26 | ER ---
Nurse's Notes [facility] Name: Indigo Estrada Age: 42 yrs Sex: Female : 1980 Arrival Date: 07/31/2022 Time: 11:59 Bed 18 Private MD: Diagnosis: Headache Presentation: 07/31 11:59 Chief complaint: EMS states: toned out for headache and neck pain, patient went to kr3 sleep around 10pm feeling tired and neck felt stiff. Patient woke up at 0258 uncomfortable and went back to sleep then woke up at 0415 with a headache that has now progressively gotten worse through out the morning. Patient was given a hydrocodone from her mother and patient states "it did not help". Coronavirus screen: Vaccine status: Patient reports being unvaccinated. Client denies travel out of the [place] in the last 14 days. Ebola Screen: Patient denies travel to an Ebola-affected area in the 21 days before illness onset. Initial Sepsis Screen: Does the patient meet any 2 criteria? No. Patient's initial sepsis screen is negative. Does the patient have a suspected source of infection? No. Patient's initial sepsis screen is negative. Risk Assessment: Do you want to hurt yourself or someone else? Patient reports no desire to harm self or others. Onset of symptoms was July 30, 2022. 11:59 Method Of Arrival: EMS kr3 11:59 Acuity: GRISELDA 3 kr3 Triage Assessment: 12:06 General: Appears distressed, uncomfortable, Behavior is cooperative, appropriate for kr3 age, anxious, crying. Pain: Complains of pain in right side of head and neck. 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 - Social history:: Smoking status: Patient reports the use of cigarette tobacco products, denies chronic smoking, but will smoke occasionally. Screenin:04 [facility] ED Fall Risk Assessment (Adult) History of falling in the last 3 months, kr3 including since admission No falls in past 3 months (0 pts) Confusion or Disorientation No (0 pts) Intoxicated or Sedated No (0 pts) Impaired Gait No (0 pts) Mobility Assist Device Used No (0 pt) Altered Elimination No (0 pt) Score/Fall Risk Level 0 - 2 = Low Risk. Abuse screen: Denies threats or abuse. Nutritional screening: No deficits noted. Tuberculosis screening: No symptoms or risk factors identified. Assessment: 13:48 Reassessment: Patient appears in no apparent distress at this time. Patient and/or kr3 family updated on plan of care and expected duration. Pain level reassessed. Patient is alert, oriented x 3, equal unlabored respirations, skin warm/dry/pink. Patient states symptoms have improved. patient left lateral with eyes closed resting quietly. 14:59 Reassessment: Patient appears in no apparent distress at this time. Patient and/or kr3 family updated on plan of care and expected duration. Pain level reassessed. Patient is alert, oriented x 3, equal unlabored respirations, skin warm/dry/pink. Vital Signs: 11:59 BP 181 / 91; Pulse 79; Resp 20; Pulse Ox 96% ; Weight 113.4 kg; Height 5 ft. 2 in. kr3 (157.48 cm); Pain 10/10; 13:47 BP 150 / 89; Pulse 65; Resp 17; Pulse Ox 96% on R/A; kr3 14:59 BP 150 / 89; Pulse 65; Pulse Ox 98% on R/A; kr3 11:59 Body Mass Index 45.73 (113.40 kg, 157.48 cm) kr3 [place] Coma Score: 14:55 Eye Response: spontaneous(4). Verbal Response: oriented(5). Motor Response: obeys kb commands(6). Total: 15. ED Course: 11:59 Patient arrived in ED. kr3 12:06 Triage completed. kr3 12:11 Candy Graham FNP-C is [facility]. kb 12:11 Memo Velsaquez MD is Attending Physician. kb 12:15 Arm band placed on right wrist. Patient placed in an exam room, on a stretcher. kr3 12:15 Bed in low position. Call light in reach. Side rails up X 1. kr3 12:18 Katharine Nuno, MARCIE is Primary Nurse. kr3 12:32 CT Head Brain wo Cont In Process Unspecified. EDMS 15:05 No provider procedures requiring assistance completed. IV discontinued, intact, kr3 bleeding controlled, No redness/swelling at site. Pressure dressing applied. Administered Medications: 13:00 Drug: Reglan (metoCLOPramide) 10 mg Route: IVP; Site: right antecubital; kr3 13:00 Drug: Benadryl (diphenhydrAMINE) 12.5 mg Route: IVP; Site: right antecubital; kr3 13:00 Drug: Decadron - Dexamethasone 10 mg Route: IVP; Site: right antecubital; kr3 13:05 Drug: NS 0.9% 1000 ml Route: IV; Rate: 1000 ml; Site: right antecubital; kr3 15:08 Follow up: Response: No adverse reaction; IV Status: Completed infusion; IV Intake: kr3 1000ml 14:00 Drug: Ketorolac 15 mg Route: IVP; Site: right antecubital; kr3 Medication: 15:06 VIS not applicable for this client. kr3 Intake: 15:08 IV: 1000ml; Total: 1000ml. kr3 Outcome: 14:25 Discharge ordered by MD. miranda 14:59 Patient left the ED. kr3 15:05 Discharged to home ambulatory. kr3 15:05 Condition: stable 15:05 Discharge instructions given to patient, Instructed on discharge instructions, follow up and referral plans. Demonstrated understanding of instructions, follow-up care. Signatures: Dispatcher [employer] EDCandy Weller, HYDRAULIC TECHNICIAN-C HYDRAULIC TECHNICIAN-Ckb Katharine Nuno RN RN kr3 Corrections: (The following items were deleted from the chart) 13:48 13:48 General: Appears kr3 kr3
[2022-07-31 15:05] VITALS: BP 150/89
[2022-07-31 15:06] VITALS: O2SAT 98
== END 2022-07-31 14:59 | disposition home or self-care (01) ==
LOC: ER 11:55
DX: R51.9 Headache, unspecified (principal); F17.210 Nicotine dependence, cigarettes, uncomplicated
CPT/HCPCS: 36415; 70450; 80048; 85025; J1100; J1200; J2765; J7030

== ENCOUNTER 2022-10-07 16:33 | Emergency (ER) | payer SELFPAY ==
--- OUTSIDE RECORDS SUMMARY | 2022-10-07 16:35 | XMS REPORT | Continuity of Care Document ---
:1980 Author Organization [facility] t Address [address] [place] [id number] Care Team Providers Name Role Phone Unavailable Unavailable Unavailable Problems This patient has no known problems. Allergies, Adverse Reactions, Alerts This patient has no known allergies or adverse reactions. Medications This patient has no known medications. Procedures This patient has no known procedures. Results This patient has no known results.
--- NOTE | 2022-10-07 17:50 | RAD REPORT ---
EXAM DESCRIPTION: RAD - Ankle Right 3 View - 10/07/2022 5:17 pm CLINICAL HISTORY: Right ankle pain FINDINGS: No fracture or dislocation is seen.
--- NOTE | 2022-10-07 19:34 | ER ---
Nurse's Notes [facility] Name: Indigo Estrada Age: 42 yrs Sex: Female : 1980 Arrival Date: 10/07/2022 Time: 16:33 Bed 16 Private MD: Diagnosis: Sprain of ankle Presentation: 10/07 17:00 Chief complaint: Patient states: "I stepped off a curve walking my dog yesterday". pt aa5 c/o pain to right ankle. Coronavirus screen: At this time, the client does not indicate any symptoms associated with coronavirus-19. Ebola Screen: Patient denies travel to an Ebola-affected area in the 21 days before illness onset. Initial Sepsis Screen: Does the patient meet any 2 criteria? HR > 90 bpm. Does the patient have a suspected source of infection? No. Patient's initial sepsis screen is negative. Risk Assessment: Do you want to hurt yourself or someone else? Patient reports no desire to harm self or others. Onset of symptoms was September 2022. 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 - Social history:: Smoking status: Patient reports the use of cigarette tobacco products, denies chronic smoking, but will smoke occasionally. Screenin:10 [facility] ED Fall Risk Assessment (Adult) History of falling in the last 3 months, pf1 including since admission No falls in past 3 months (0 pts) Confusion or Disorientation No (0 pts) Intoxicated or Sedated No (0 pts) Impaired Gait No (0 pts) Mobility Assist Device Used No (0 pt) Altered Elimination No (0 pt) Score/Fall Risk Level 0 - 2 = Low Risk Oriented to surroundings, Maintained a safe environment, Educated pt \\T\\ family on fall prevention, incl call for assistance when getting out of bed, Assessed \\T\\ reinforced patient's understanding of fall precautions, Provided non-skid footwear, Hourly rounding (assess needs \\T\\ fall precautionary measures) done, Used ambulatory aids as needed (educated on \\T\\ assisted with), Used gait belt as appropriate. 21:10 Abuse screen: Denies threats or abuse. Nutritional screening: No deficits noted. pf1 Tuberculosis screening: No symptoms or risk factors identified. Assessment: 21:10 General: Appears in no apparent distress. uncomfortable, obese, well groomed, well pf1 developed, Behavior is calm, cooperative, appropriate for age, quiet. 21:10 Pain: Complains of pain in right ankle Pain currently is 7 out of 10 on a pain scale. pf1 Neuro: No deficits noted. Level of Consciousness is awake, alert, obeys commands, Oriented to person, place, time, situation. Cardiovascular: No deficits noted. Respiratory: No deficits noted. Airway is patent Trachea midline Respiratory effort is even, unlabored, Respiratory pattern is regular, symmetrical. GI: No deficits noted. No signs and/or symptoms were reported involving the gastrointestinal system. : No deficits noted. No signs and/or symptoms were reported regarding the genitourinary system. EENT: No deficits noted. No signs and/or symptoms were reported regarding the EENT system. Derm: No deficits noted. No signs and/or symptoms reported regarding the dermatologic system. Musculoskeletal: Circulation, motion, and sensation intact. Capillary refill < 3 seconds, Reports pain in right ankle. Vital Signs: 17:01 BP 159 / 107; Pulse 104; Resp 20 S; Temp 97.8(TE); Pulse Ox 97% on R/A; Weight 115.67 aa5 kg (R); Height 5 ft. 3 in. (R); 17:01 Body Mass Index 45.17 (115.67 kg, 160.02 cm) aa5 ED Course: 16:33 Patient arrived in ED. am2 16:35 Jose Gregorio PA is PHCP. jmm 16:35 Jarrod Serrato MD is Attending Physician. jmm 17:00 Arm band placed on. aa5 17:01 Triage completed. aa5 17:19 Ankle Right 3 View XRAY In Process Unspecified. EDMS 19:33 Brendon Ceja MD is Referral Physician. jmm 21:10 Patient has correct armband on for positive identification. pf1 22:00 No provider procedures requiring assistance completed. pf1 22:10 Patient did not have IV access during this emergency room visit. pf1 22:13 Monique chang, RN is Primary Nurse. pf1 Administered Medications: 10/08 07:29 Drug: Ibuprofen PO 800 mg Route: PO; pf1 Medication: 10/07 22:00 VIS not applicable for this client. pf1 Outcome: 19:34 Discharge ordered by . monica 22:13 Discharged to home via wheelchair, with crutches. pf1 22:13 Condition: stable 22:13 Discharge instructions given to patient, Instructed on discharge instructions, follow up and referral plans. Demonstrated understanding of instructions, follow-up care, medications. 22:14 Prescriptions given X 1. pf1 22:14 Patient left the ED. pf1 Signatures: Dispatcher [employer] EDMS Jose Gregorio PA PA jmm Calderon, Audri, RN RN aa5 Laruie Schwarz Pamala, RN RN pf1 Corrections: (The following items were deleted from the chart) 17:03 17:01 Pulse 104bpm; Resp 20bpm; Spontaneous; Pulse Ox 97% RA; Temp 97.8F Temporal; aa5 115.67 kg Reported; Height 5 ft. 3 in. Reported; BMI: 45.1; aa5
--- NOTE | 2022-10-07 19:34 | EDPHYS ---
Physician Documentation [facility] Name: Indigo Estrada Age: 42 yrs Sex: Female : 1980 Arrival Date: 10/07/2022 Time: 16:33 Bed 16 Private MD: ED Physician Jarrod Serrato HPI: 10/07 17:00 This 42 yrs old Female presents to ER via Wheelchair with complaints of Ankle Injury - jmm right. 17:00 The patient presents with an injury, pain. Onset: The symptoms/episode began/occurred jmm acutely, 1 day(s) ago. This is a 42 year old female with a history of schizophrenia, seizures, anxiety that presents to the ED with complaints of right ankle pain. Patient states she mis stepped down a curb, rolling her ankle. Denies other injury. Patient aggravated the injury today. . 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 - Social history:: Smoking status: Patient reports the use of cigarette tobacco products, denies chronic smoking, but will smoke occasionally. ROS: 17:00 Constitutional: Negative for fever, chills, and weight loss, Cardiovascular: Negative jmm for chest pain, palpitations, and edema, Respiratory: Negative for shortness of breath, cough, wheezing, and pleuritic chest pain. 17:00 MS/extremity: Positive for injury or acute deformity, pain. 17:00 All other systems are negative. Exam: 17:00 Constitutional: This is a well developed, well nourished patient who is awake, alert, jmm and in no acute distress. Head/Face: atraumatic. Eyes: EOMI, no conjunctival erythema appreciated ENT: Moist Mucus Membranes Neck: Trachea midline, Supple Chest/axilla: Normal chest wall appearance and motion. Cardiovascular: Regular rate and rhythm. No edema appreciated Respiratory: Normal respirations, no respiratory distress appreciated Abdomen/GI: Non distended Back: Normal ROM Skin: General appearance color normal 17:00 Musculoskeletal/extremity: swelling noted to the right ankle, compartments are soft, NVI, full dorsalis pedis pulse. 17:00 Skin: Appearance: Color: normal in color. 17:00 Neuro: Motor: is normal. 17:00 Psych: Behavior/mood is pleasant, cooperative. Vital Signs: 17:01 BP 159 / 107; Pulse 104; Resp 20 S; Temp 97.8(TE); Pulse Ox 97% on R/A; Weight 115.67 aa5 kg (R); Height 5 ft. 3 in. (R); 17:01 Body Mass Index 45.17 (115.67 kg, 160.02 cm) aa5 MDM: 17:00 Patient medically screened. [facility] 18:50 Differential diagnosis: fracture, sprain. [facility] 19:31 Data reviewed: vital signs, nurses notes, radiologic studies, plain films. I considered [facility] the following discharge prescriptions or medication management in the emergency department Medications were administered in the Emergency Department. See MAR. Independent interpretation of the following test(s) in the Emergency Department X-Ray: My interpretation is no fracture appreciated. Counseling: I had a detailed discussion with the patient and/or guardian regarding: the historical points, exam findings, and any diagnostic results supporting the discharge/admit diagnosis, radiology results, the need for outpatient follow up, to return to the emergency department if symptoms worsen or persist or if there are any questions or concerns that arise at home. 10/07 17:05 Order name: Ankle Right 3 View XRAY; Complete Time: 17:51 [facility] 10/07 17:05 Order name: Ice pack; Complete Time: 07:29 [facility] 10/07 17:51 Order name: Omari wrap-joint; Complete Time: 07:29 [facility] 10/07 17:51 Order name: Crutches; Complete Time: 07:29 [facility] Administered Medications: 10/08 07:29 Drug: Ibuprofen PO 800 mg Route: PO; pf1 Disposition Summary: 10/07/22 19:34 Discharge Ordered Location: Home [facility] Condition: Stable [facility] Diagnosis - Sprain of ankle [facility] Followup: [facility] - With: Brendon Ceja MD - When: 2 - 3 days - Reason: Recheck today's complaints, Continuance of care, Re-evaluation by your physician Discharge Instructions: - Discharge Summary Sheet [facility] - Ankle Sprain [facility] Forms: - Medication Reconciliation Form [facility] - Thank You Letter [facility] - Antibiotic Education [facility] - Prescription Opioid Use [facility] Prescriptions: - Diclofenac Sodium 75 mg Oral Tablet Sustained Release - take 1 tablet by ORAL route 2 times per day; 30 tablet; Refills: 0, Product monica Selection Permitted Signatures: Dispatcher [employer] Jose Salcedo PA PA jmm Calderon, Audri, RN RN aa5 Monique chang RN RN pf1
[2022-10-07] MEDS ORDERED: IBUPROFEN 400 MG TAB ONE (21:46)
[2022-10-08 07:37] VITALS: BP 159/107; TEMP 97.8; O2SAT 97
== END 2022-10-07 22:14 | disposition home or self-care (01) ==
LOC: ER 16:33
DX: S93.401A Sprain of unspecified ligament of right ankle, initial encounter (principal)

== ENCOUNTER 2024-05-28 15:09 | Emergency (ER) | payer OTHER, SELFPAY ==
--- OUTSIDE RECORDS SUMMARY | 2024-05-28 15:12 | XMS REPORT | Continuity of Care Document ---
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
--- NOTE | 2024-05-28 16:52 | ER ---
Nurse's Notes [facility] Name: Indigo Estrada Age: 43 yrs Sex: Female : 1980 Arrival Date: 05/28/2024 Time: 15:09 Bed IW2 Private MD: Diagnosis: Acute tonsillitis, unspecified Presentation: 05/28 15:20 Chief complaint: Patient states: bad sore throat, hard to swallow, started today. iw Coronavirus screen: Client presents with at least one sign or symptom that may indicate coronavirus-19. Ebola Screen: No symptoms or risks identified at this time. Initial Sepsis Screen: Does the patient meet any 2 criteria? No. Patient's initial sepsis screen is negative. Does the patient have a suspected source of infection? No. Patient's initial sepsis screen is negative. Risk Assessment: Do you want to hurt yourself or someone else? Patient reports no desire to harm self or others. Onset of symptoms was May 28, 2024. 15:20 Method Of Arrival: Ambulatory 15:20 Acuity: GRISELDA 4 iw Historical: - Allergies: 15:22 No Known Allergies; iw - PMHx: 15:22 Anxiety; Schizophrenia; Seizures; iw - PSHx: 15:22 None; iw - Immunization history:: Adult Immunizations not up to date. - Infectious Disease History:: Denies. - Social history:: Smoking status: Patient denies any tobacco usage or history of. Screenin:01 [facility] ED Fall Risk Assessment (Adult) History of falling in the last 3 months, iw including since admission No falls in past 3 months (0 pts) Confusion or Disorientation No (0 pts) Intoxicated or Sedated No (0 pts) Impaired Gait No (0 pts) Mobility Assist Device Used No (0 pt) Altered Elimination No (0 pt) Score/Fall Risk Level 0 - 2 = Low Risk Oriented to surroundings, Maintained a safe environment, Educated pt \T\ family on fall prevention, incl call for assistance when getting out of bed. Abuse screen: Denies threats or abuse. Denies injuries from another. Nutritional screening: No deficits noted. Tuberculosis screening: No symptoms or risk factors identified. Assessment: 17:01 General: Appears in no apparent distress. Behavior is calm, cooperative. Pain: iw Complains of pain in throat Pain currently is 5 out of 10 on a pain scale. Neuro: Level of Consciousness is awake, alert, obeys commands, Oriented to person, place, time, situation. Cardiovascular: Patient's skin is warm and dry. Respiratory: Airway is patent Respiratory effort is even, unlabored. GI: No signs and/or symptoms were reported involving the gastrointestinal system. : No signs and/or symptoms were reported regarding the genitourinary system. EENT: Throat has enlarged tonsils. Derm: No signs and/or symptoms reported regarding the dermatologic system. Musculoskeletal: No signs and/or symptoms reported regarding the musculoskeletal system. Vital Signs: 15:20 BP 172 / 100; Pulse 104; Resp 19; Temp 98.8; Pulse Ox 98% ; Weight 104.33 kg; Height 5 iw ft. 2 in. ; Pain 4/10; 17:02 BP 160 / 100; Pulse 89; Resp 17; Temp 98.9; Pulse Ox 99% ; MAP 118 mmHg; Pain 4/10; iw 15:20 Body Mass Index 42.07 (104.33 kg, 157.48 cm) iw 15:20 Pain Scale: Adult iw 17:02 Pain Scale: Adult iw ED Course: 15:11 Patient arrived in ED. ra3 15:14 Jrarod Minor PA is PHCP. cp 15:14 Stanley Mares DO is Attending Physician. cp 15:22 Triage completed. iw 15:22 Arm band placed on. iw 17:01 Patient has correct armband on for positive identification. Provided Education on: use iw of prescription meds. 17:01 No provider procedures requiring assistance completed. Patient did not have IV access iw during this emergency room visit. Administered Medications: 17:05 Drug: Acetaminophen PO 1000 mg PO once Route: PO; iw 17:05 Follow up: Response: Medication administered at discharge. iw Medication: 17:01 VIS not applicable for this client. iw Outcome: 16:52 Discharge ordered by MD. cp 17:05 Discharged to home ambulatory, iw 17:05 Condition: stable 17:05 Discharge instructions given to patient, Instructed on discharge instructions, follow up and referral plans. medication usage, Demonstrated understanding of instructions, follow-up care, medications, Prescriptions given X 3, 17:06 Patient left the ED. iw Signatures: Earline Soriano RN RN iw Jarrod Minor PA PA Rachna Garcia ra3 Corrections: (The following items were deleted from the chart) 15:23 15:20 Pulse 104bpm; Resp 19bpm; Pulse Ox 98%; Temp 98.8F; 104.33 kg; Height 5 ft. 2 iw in.; BMI: 42.0; Pain 4/10, Adult; iw
--- NOTE | 2024-05-28 16:53 | EDPHYS ---
Physician Documentation [facility] Name: Indigo Estrada Age: 43 yrs Sex: Female : 1980 Arrival Date: 05/28/2024 Time: 15:09 Bed IW2 Private MD: ED Physician Stanley Mares HPI: 05/28 15:30 This 43 yrs old Female presents to ER via Ambulatory with complaints of Sore Throat - cp Throat swelling. 15:30 The patient presents with sore throat, dysphagia, of both solids and liquids. The cp patient describes throat pain as constant. Onset: The symptoms/episode began/occurred today. Severity of symptoms: in the emergency department the symptoms are unchanged, despite home interventions. Modifying factors: the symptoms are aggravated by swallowing. Associated signs and symptoms: Pertinent positives: chills, Pertinent negatives cough. Historical: - Allergies: 15:22 No Known Allergies; iw - PMHx: 15:22 Anxiety; Schizophrenia; Seizures; iw - PSHx: 15:22 None; iw - Immunization history:: Adult Immunizations not up to date. - Infectious Disease History:: Denies. - Social history:: Smoking status: Patient denies any tobacco usage or history of. ROS: 15:33 Constitutional: Positive for chills, Negative for body aches, fever, poor PO intake, cp 15:33 Eyes: Negative for injury, pain, redness, and discharge, cp 15:33 ENT: Positive for difficulty swallowing, sore throat, Negative for drainage from ear(s), ear pain, difficulty handling secretions, 15:33 Cardiovascular: Negative for chest pain, palpitations, 15:33 Respiratory: Negative for cough, shortness of breath, wheezing, 15:33 Abdomen/GI: Negative for abdominal pain, vomiting, diarrhea, constipation, 15:33 : Negative for urinary symptoms, 15:33 Skin: Negative for rash, 15:33 Neuro: Negative for altered mental status, dizziness, headache, weakness, 15:33 All other systems are negative, Exam: 15:37 Constitutional: The patient appears in no acute distress, alert, awake, non-toxic, well cp developed, well nourished, obese, 15:37 Head/Face: Normocephalic, atraumatic. cp 15:37 Eyes: Periorbital structures: appear normal, Conjunctiva: normal, no exudate, no injection, Sclera: no appreciated abnormality, Lids and lashes: appear normal, bilaterally, 15:37 ENT: External ear(s): are unremarkable, Ear canal(s): are normal, clear, TM's: dullness, bilaterally, Mouth: Lips: moist, Posterior pharynx: Airway: no evidence of obstruction, patent, Tonsils: bilaterally enlarged, with erythema, with exudate, erythema, that is moderate, Voice: is normal, 15:37 Neck: ROM/movement: Meningeal signs: are not present, nuchal rigidity, is not appreciated, Lymph nodes: lymphadenopathy is appreciated, anterior cervical nodes, 15:37 Chest/axilla: Inspection: normal, 15:37 Cardiovascular: Rate: tachycardic, Rhythm: regular, 15:37 Respiratory: the patient does not display signs of respiratory distress, Respirations: normal, no use of accessory muscles, no retractions, labored breathing, is not present, Breath sounds: are clear throughout, no decreased breath sounds, no stridor, no wheezing, 15:37 Abdomen/GI: Exam negative for discomfort, distension, guarding, Inspection: abdomen appears normal, 15:37 Skin: no rash present. Vital Signs: 15:20 BP 172 / 100; Pulse 104; Resp 19; Temp 98.8; Pulse Ox 98% ; Weight 104.33 kg; Height 5 iw ft. 2 in. ; Pain 4/10; 17:02 BP 160 / 100; Pulse 89; Resp 17; Temp 98.9; Pulse Ox 99% ; MAP 118 mmHg; Pain 4/10; iw 15:20 Body Mass Index 42.07 (104.33 kg, 157.48 cm) iw 15:20 Pain Scale: Adult iw 17:02 Pain Scale: Adult iw MDM: 15:26 Medical Screening Exam initiated cp 16:00 Differential diagnosis: apthous stomatitis, epiglottitis, rose-rodriguez virus, group A cp strep tonsillitis, peritonsillar abscess pharyngitis, tonsillitis, uvulitis. 16:51 Data reviewed: vital signs, nurses notes, lab test result(s), and as a result, I will cp discharge patient. 16:51 Counseling: I had a detailed discussion with the patient and/or guardian regarding the cp historical points, exam findings, and any diagnostic results supporting the discharge/admit diagnosis, lab results, to return to the emergency department if symptoms worsen or persist or if there are any questions or concerns that arise at home. 05/28 15:26 Order name: Strep cp 05/28 16:51 Interpretation: Reviewed. cp 05/28 16:04 Order name: Throat Culture EDMS Administered Medications: 17:05 Drug: Acetaminophen PO 1000 mg PO once Route: PO; iw 17:05 Follow up: Response: Medication administered at discharge. Disposition Summary: 05/28/24 16:52 Discharge Ordered Notes: Location: Home cp Problem: new cp Symptoms: have improved cp Condition: Stable cp Diagnosis - Acute tonsillitis, unspecified cp Followup: cp - With: Private Physician - When: 2 - 3 days - Reason: Worsening of condition Discharge Instructions: - Discharge Summary Sheet cp - Tonsillitis cp Forms: - Medication Reconciliation Form cp - Antibiotic Education cp - Prescription Opioid Use cp - Patient Portal Instructions cp - Leadership Thank You Letter cp Prescriptions: - Lidocaine Viscous - take 5 milliliter ORAL route every 4-6 hours As needed; 120 milliliter; cp Refills: 0, Product Selection Permitted - clarithromycin 500 mg Oral tablet - take 1 tablet ORAL route every 12 hours for 10 days; 20 tablet; Refills: 0, cp Product Selection Permitted - Ibuprofen 800 mg Oral Tablet - take 1 tablet ORAL route every 8 hours As needed take with food; 30 tablet; cp Refills: 0, Product Selection Permitted Signatures: Dispatcher [employer] Earline Mclaughlin RN RN iw Jarrod Minor PA PA cp Corrections: (The following items were deleted from the chart) 15:27 15:27 Group A Streptococcus Rapid [id number] ordered. EDRI EDMS
[2024-05-28] MEDS ORDERED: ACETAMINOPHEN 500 MG TAB ONE (16:58)
== END 2024-05-28 17:06 | disposition home or self-care (01) ==
LOC: ER 15:09
DX: J03.90 Acute tonsillitis, unspecified (principal)
CPT/HCPCS: 87070; 87081; 99283